=== PATIENT | female | born 1945 | race Caucasian/White ===

== ENCOUNTER 2016-10-08 16:44 | Emergency (ER) | payer MEDICARE ==
[~2016-10-08] VITALS: Ht 167.6 cm; Wt 69.4 kg
[~2016-10-08 16:44] MED LIST: PNT40TEC PO
--- NOTE | 2016-10-08 17:22 | ED General ---
General Stated Complaint: ELEV BP Source of Information: Patient History of Present Illness Time Seen by Provider: 16:59 Initial Comments PT ARRIVES VIA POV FROM HOME PT STATES BP HAS BEEN HIGH TODAY PT WAS STARTED ON BP MEDICATION FOR THE FIRST TIME ON 09/20/16--LISINOPRIL + BYSTOLIC--IS NOT TAKING THEM AT THE SAME TIME EVERY DAY, AND HAS BEEN CUTTING BYSTOLIC IN HALF AND CRUSHING IT AND MIXING IN APPLESAUCE SINCE THAT DAY, PT HAS BEEN CHECKING HER BP EVERY 5-30 MINUTES CONTINUOUSLY-- EVERY DAY, ALL DAY AND ALL NIGHT, LITERALLY. STATES BP "GOES UP AND DOWN" --PT BRINGS IN MULTIPLE NOTEBOOK PAGES FILLED ON FRONT AND BACK WITH BP READINGS SINCE 09/20/16--OBVIOUSLY PT IS NOT SLEEPING, SHE IS CONSTANTLY CHECKING HER BLOOD PRESSURE AROUND THE CLOCK. 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 SOLANO PT WAS ALSO TREATED FOR SINUSITIS ON 09/20/16 WITH AUGMENTIN--THOSE SYMPTOMS ARE BETTER Allergies and Home Medications Allergies Coded Allergies: No Known Drug Allergies (Unverified , 08/06/13) Home Medications Pantoprazole Sod 40 Mg Tab, 40 MG PO DAILY, #30 Prescribed by: CARROL AMEZQUITA on 11/30/13 1101 Constitutional: no symptoms reported EENTM: no symptoms reported Respiratory: no symptoms reported Cardiovascular: see HPI, No chest pain, No edema, No Hx of Intervention, No palpitations, No syncope, No vascular heart diseas Gastrointestinal: see HPI, No abdominal pain, nausea, No vomiting Genitourinary: no symptoms reported Musculoskeletal: no symptoms reported Skin: no symptoms reported Psychiatric/Neurological: See HPI, Anxiety, Denies Headache, Denies Numbness, Denies Paresthesia, Denies Seizure, Denies Weakness Hematologic/Lymphatic: No Symptoms Reported Immunological/Allergic: no symptoms reported Past Oclunxb-Wlzrtl-Swnwhb Hx Patient Social History Alcohol Use: Denies Use Recreational Drug Use: No Smoking Status: Never a Smoker Recent Foreign Travel: No Contact w/Someone Who Travel: No Immunizations Up To Date Tetanus Booster (TDap): Less than 5yrs Surgeries HX Surgeries: Yes (RHINOPLASTY; BENIGN CYST REMOVED FROM BREAST) Surgeries: Breast Respiratory Hx Respiratory Disorders: Yes Respiratory Disorders: Asthma Cardiovascular Hx Cardiac Disorders: Yes (STARTED ON BP MEDICATIONS 09/20/16) Cardiac Disorders: Hypertension Neurological Hx Neurological Disorders: No Reproductive System Hx Reproductive Disorders: No Genitourinary Hx Genitourinary Disorders: No Gastrointestinal Hx Gastrointestinal Disorders: Yes Gastrointestinal Disorders: Gastroesophageal Reflux Musculoskeletal Hx Musculoskeletal Disorders: Yes Musculoskeletal Disorders: Arthritis Endocrine Hx Endocrine Disorders: No HEENT HX ENT Disorders: No Loss of Vision: Denies Cancer Hx Cancer: No Psychosocial Hx Psychiatric Problems: No Integumentary HX Skin/Integumentary Disorder: No Blood Transfusions Hx Blood Disorders: No Family Medical History Family Medial History: Completed stroke 19 FATHER Congenital heart disease G8 BROTHER Diabetes mellitus G8 BROTHER FH: breast cancer 19 MOTHER Hypertension G8 BROTHER G8 SISTER Myocardial infarction 19 FATHER Physical Exam Vital Signs Vital Sign - Last 12Hours 10/08/16 17:10 Temp 98.0 Pulse 74 Resp 18 B/P (MAP) 184/104 Pulse Ox 97 Capillary Refill : General Appearance: No Apparent Distress, WD/WN, Anxious HEENT: PERRL/EOMI (GLASSES) Neck: Full Range of Motion, Normal Inspection, Non Tender, Supple Respiratory: Normal Breath Sounds, No Accessory Muscle Use, No Respiratory Distress Cardiovascular: Regular Rate, Rhythm, No Edema, No JVD, No Murmur, Normal Peripheral Pulses Gastrointestinal: Normal Bowel Sounds, No Organomegaly, No Pulsatile Mass, Non Tender, Soft Back: Normal Inspection Extremity: Normal Inspection, No Calf Tenderness, No Pedal Edema Neurologic/Psychiatric: Alert, Oriented x3, No Motor/Sensory Deficits, 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, Other (EXTREMELY ANXIOUS) Skin: Normal Color, Warm/Dry Progress/Results/Core Measures Results/Orders Lab Results Laboratory Tests Test 10/08/16 17:15 Range/Units White Blood Count 7.1 4.3-11.0 10^3/uL Red Blood Count 4.48 4.35-5.85 10^6/uL Hemoglobin 14.3 11.5-16.0 G/DL Hematocrit 44 35-52 % Mean Corpuscular Volume 97 80-99 FL Mean Corpuscular Hemoglobin 32 25-34 PG Mean Corpuscular Hemoglobin Concent 33 32-36 G/DL Red Cell Distribution Width 13.3 10.0-14.5 % Platelet Count 215 130-400 10^3/uL Mean Platelet Volume 11.0 H 7.4-10.4 FL Neutrophils (%) (Auto) 67 42-75 % Lymphocytes (%) (Auto) 22 12-44 % Monocytes (%) (Auto) 10 0-12 % Eosinophils (%) (Auto) 1 0-10 % Basophils (%) (Auto) 1 0-10 % Neutrophils # (Auto) 4.8 1.8-7.8 X 10^3 Lymphocytes # (Auto) 1.6 1.0-4.0 X 10^3 Monocytes # (Auto) 0.7 0.0-1.0 X 10^3 Eosinophils # (Auto) 0.0 0.0-0.3 10^3/uL Basophils # (Auto) 0.0 0.0-0.1 10^3/uL Prothrombin Time 12.5 12.2-14.7 SEC INR Comment 0.9 0.8-1.4 Activated Partial Thromboplast Time 27 24-35 SEC Sodium Level 143 135-145 MMOL/L Potassium Level 3.3 L 3.6-5.0 MMOL/L Chloride Level 105 98-107 MMOL/L Carbon Dioxide Level 24 21-32 MMOL/L Anion Gap 14 5-14 MMOL/L Blood Urea Nitrogen 13 7-18 MG/DL Creatinine 0.77 0.60-1.30 MG/DL Estimat Glomerular Filtration Rate > 60 BUN/Creatinine Ratio 17 Glucose Level 109 H 70-105 MG/DL Calcium Level 9.7 8.5-10.1 MG/DL Magnesium Level 2.1 1.8-2.4 MG/DL Total Bilirubin 0.5 0.1-1.0 MG/DL Aspartate Amino Transf (AST/SGOT) 19 5-34 U/L Alanine Aminotransferase (ALT/SGPT) 13 0-55 U/L Alkaline Phosphatase 44 40-136 U/L Troponin I < 0.30 <0.30 NG/ML Total Protein 7.3 6.4-8.2 GM/DL Albumin 4.2 3.2-4.5 GM/DL TSH [place] Testing 0.43 0.35-4.94 UIU/ML My Orders Orders - YOGESH HERRERA DO Saline Lock/Iv-Start (10/08/16 17:08) Ekg Tracing (10/08/16 17:08) Monitor-Rhythm Ecg Trace Only (10/08/16 17:08) Cbc With Automated Diff (10/08/16 17:08) Comprehensive Metabolic Panel (10/08/16 17:08) Magnesium (10/08/16 17:08) Protime With Inr (10/08/16 17:08) Partial Thromboplastin Time (10/08/16 17:08) Thyroid Analyzer (10/08/16 17:08) Troponin I (10/08/16 17:08) Chest 1 View, Ap/Pa Only (10/08/16 17:08) Potassium Chloride (Tablet) (Klor Con Ta (10/08/16 18:15) Medications Given in ED Current Medications Medications Dose Ordered Sig/Gurpreet Route Start Time Stop Time Status Last Admin Dose Admin Potassium Chloride 20 meq ONCE ONCE PO 10/08/16 18:15 10/08/16 18:16 DC 10/08/16 18:16 20 MEQ Vital Signs/I&O Vital Sign - Last 12Hours 10/08/16 10/08/16 17:10 18:22 Temp 98.0 Pulse 74 64 Resp 18 18 B/P (MAP) 184/104 Pulse Ox 97 97 Progress Note : Progress Note BP COMING DOWN WITHOUT TREATMENT PT APPEARS CALMER AT DISMISSAL REASSURANCE GIVEN TO PT ECG Initial ECG Impression Time: 17:10 Initial ECG Rate: 67 Initial ECG Rhythm: Normal Sinus Initial ECG Comparisson: No Previous ECG Available Diagnostic Imaging Comments CXR--NO ACUTE PROCESS, PER RADIOLOGIST REPORT @ 1800 Reviewed: Reviewed by Me Departure Impression Impression: Primary Impression: Labile blood pressure Additional Impressions: Anxiety disorder due to general medical condition MILD HYPOKALEMIA Disposition: 01 HOME, SELF-CARE Condition: Improved Departure-Patient Inst. Referrals: KISHA SOLANO MD (PCP) Primary Care Physician Patient Instructions: DASH Diet, Heart Healthy Diet, High Blood Pressure (DC) Add. Discharge Instructions: CONTINUE YOUR MEDICATIONS PRESCRIBED, AND TAKE THEM AT THE SAME TIME EVERY DAY STOP CHECKING YOUR BLOOD PRESSURE FOLLOW UP WITH DR. SOLANO THIS WEEK FOR FURTHER CARE YOGESH HERRERA DO Oct 08, 2016 17:22
[2016-10-08 17:24] LABS: BASOPHILS % (AUTO) 1 % (0-10); EOSINOPHILS % (AUTO) 1 % (0-10); LYMPHOCYTES # (AUTO) 1.6 X 10^3 (1.0-4.0); LYMPHOCYTES % (AUTO) 22 % (12-44); MEAN CORPUSCULAR HEMOGLOBIN 32 PG (25-34); MEAN CORPUSCULAR HGB CONC 33 G/DL (32-36); MEAN CORPUSCULAR VOLUME 97 FL (80-99); MONOCYTES # (AUTO) 0.7 X 10^3 (0.0-1.0); MONOCYTES % (AUTO) 10 % (0-12); NEUTROPHILS # (AUTO) 4.8 X 10^3 (1.8-7.8); NEUTROPHILS % (AUTO) 67 % (42-75); PLATELET COUNT 215 10^3/uL (130-400); RED BLOOD COUNT 4.48 10^6/uL (4.35-5.85); RED CELL DISTRIBUTION WIDTH 13.3 % (10.0-14.5); WHITE BLOOD COUNT 7.1 10^3/uL (4.3-11.0)
[2016-10-08 17:34] LABS: INR 0.9 (0.8-1.4); PROTHROMBIN TIME PATIENT 12.5 SEC (12.2-14.7)
--- NOTE | 2016-10-08 17:42 | Diagnostic Imaging Report ---
INDICATION: Hypertension. EXAMINATION: Portable chest at 5:32 p.m. FINDINGS: Heart size and pulmonary vascularity are normal. Lungs are clear. There are no effusions or pneumothoraces. IMPRESSION: Negative chest. Dictated by: Dictated on workstation # [id number]
[2016-10-08 17:44] LABS: ALANINE AMINOTRANSFERASE 13 U/L (0-55); ALBUMIN 4.2 GM/DL (3.2-4.5); ANION GAP 14 MMOL/L (5-14); ASPARTATE AMINO TRANSFERASE 19 U/L (5-34); BILIRUBIN,TOTAL 0.5 MG/DL (0.1-1.0); BLOOD UREA NITROGEN 13 MG/DL (7-18); BUN/CREATININE RATIO 17; CALCIUM 9.7 MG/DL (8.5-10.1); CARBON DIOXIDE 24 MMOL/L (21-32); CHLORIDE 105 MMOL/L (98-107); CREATININE SERUM 0.77 MG/DL (0.60-1.30); GFR ESTIMATED > 60; GLUCOSE 109 MG/DL (70-105); MAGNESIUM 2.1 MG/DL (1.8-2.4); POTASSIUM 3.3 MMOL/L (3.6-5.0); SODIUM 143 MMOL/L (135-145); TOTAL PROTEIN 7.3 GM/DL (6.4-8.2)
[2016-10-08 18:04] LABS: TROPONIN I < 0.30 NG/ML (<0.30)
[2016-10-08] MEDS ORDERED: KCL 10 MEQ TAB (MICRO K) PO ONE (18:15)
[2016-10-08 18:22] VITALS: BP 170/90
== END 2016-10-08 18:22 | disposition home or self-care (01) ==
LOC: EDUNIT# 16:44 → ER 16:45
DX: I10 Essential (primary) hypertension (principal); F41.9 Anxiety disorder, unspecified; E87.6 Hypokalemia; J45.909 Unspecified asthma, uncomplicated; K21.9 Gastro-esophageal reflux disease without esophagitis; M19.90 Unspecified osteoarthritis, unspecified site; Z80.3 Family history of malignant neoplasm of breast; Z82.49 Family history of ischemic heart disease and other diseases of the circulatory system
CPT/HCPCS: 36415; 71010; 80053; 83735; 84443; 84484; 85025; 85610; 85730; 93005; 93041

== ENCOUNTER 2016-10-15 10:58 | Emergency (ER) | payer MEDICARE ==
[~2016-10-15] VITALS: Ht 167.6 cm; Wt 69.6 kg
[2016-10-15 11:27] VITALS: BP 185/107
--- NOTE | 2016-10-15 13:23 | ED GI ---
General Chief Complaint: Abdominal/GI Problems Stated Complaint: NAUSEA/VOMITING/L EAR DISCOMFORT Nursing Triage Note: PT REPORTS SHE HAS HAD N/V FOR THE LAST COUPLE OF DAYS. SHE STATES SHE HAS HAD RECENT CHANGES TO HER BLOOD PRESSURE MEDICATIONS AND SHE IS UNSURE IF THAT IS THE CAUSE. SHE ALSO REPORTS L EAR PAIN. Sepsis Screen: No Definite Risk Source of Information: Patient Exam Limitations: No Limitations History of Present Illness Time Seen By Provider: 13:15 Initial Comments The patient is a 71-year-old white female who presents today with complaints of nausea and vomiting. This has been a problem for 36-48 hours. She is continued to try to eat during this period of time. There has been no bowel movement for 3 days. There is been no fever. She was here one week ago with concerns over her new antihypertensive medications. Timing/Duration: 1-2 Days Severity/Quality: Moderate Allergies and Home Medications Allergies Coded Allergies: No Known Drug Allergies (Unverified , 08/06/13) Home Medications Pantoprazole Sod 40 Mg Tab, 40 MG PO DAILY, #30 Prescribed by: CARROL AMEZQUITA on 11/30/13 1101 Review of Systems Constitutional: see HPI EENTM: Ear Pain (left) Respiratory: No Symptoms Reported Cardiovascular: No Symptoms Reported Gastrointestinal: See HPI, Constipated, Nausea, Vomiting Genitourinary: No Symptoms Reported Musculoskeletal: no symptoms reported Skin: no symptoms reported Psychiatric/Neurological: No Symptoms Reported Endocrine: No Symptoms Reported Hematologic/Lymphatic: No Symptoms Reported Past Ryhonts-Upfiiv-Hxkphc Hx Patient Social History Alcohol Use: Denies Use Recreational Drug Use: No Smoking Status: Never a Smoker 2nd Hand Smoke Exposure: No Recent Foreign Travel: No Contact w/Someone Who Travel: No Recent Infectious Disease Expo: No Recent Hopitalizations: No Physical Abuse: No Sexual Abuse: No Immunizations Up To Date Tetanus Booster (TDap): Less than 5yrs Surgeries History of Surgeries: Yes (RHINOPLASTY) Surgeries: Breast Respiratory History of Respiratory Disorde: Yes Respiratory Disorders: Asthma Cardiovascular History of Cardiac Disorders: Yes Cardiac Disorders: Hypertension Neurological History of Neurological Disord: No Reproductive System Hx Reproductive Disorders: No Gastrointestinal History of Gastrointestinal Di: Yes Gastrointestinal Disorders: Gastroesophageal Reflux Musculoskeletal History of Musculoskeletal Dis: No Musculoskeletal Disorders: Arthritis Endocrine History of Endocrine Disorders: No HEENT Loss of Vision: Denies Cancer History of Cancer: No (benign cyst L breast removed ) Psychosocial History of Psychiatric Problem: No Suicide Risk Score: 0 Integumentary History of Skin or Integumenta: No Blood Transfusions History of Blood Disorders: No Family Medical History Family Medial History: Completed stroke 19 FATHER Congenital heart disease G8 BROTHER Diabetes mellitus G8 BROTHER FH: breast cancer 19 MOTHER Hypertension G8 BROTHER G8 SISTER Myocardial infarction 19 FATHER Physical Exam Vital Signs VS - Last 72 Hours, by Label 10/15/16 11:27 Temp 97.2 Pulse 84 Resp 16 B/P (MAP) 185/107 Pulse Ox 98 O2 Delivery Room Air Capillary Refill : Less Than 3 Seconds General Appearance: other (aNXIOUS) HEENT: other (left ear and TM unremarkable) Neck: full range of motion Respiratory: chest non-tender, lungs clear, normal breath sounds, no respiratory distress, no accessory muscle use Cardiovascular: normal peripheral pulses, regular rate, rhythm, no edema, no gallop, no JVD, no murmur Gastrointestinal: non tender, soft, no organomegaly, abnormal bowel sounds ( Somewhat decreased) Extremities: normal range of motion, non-tender, normal inspection, no pedal edema, no calf tenderness, normal capillary refill, pelvis stable Back: normal inspection 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, no motor/sensory deficits, alert, normal mood/affect, oriented x 3 Skin: normal color, warm/dry Lymphatic: no adenopathy Progress/Results/Core Measures Results/Orders Lab Results Laboratory Tests Test 10/15/16 13:35 Range/Units White Blood Count 5.5 4.3-11.0 10^3/uL Red Blood Count 4.96 4.35-5.85 10^6/uL Hemoglobin 15.7 11.5-16.0 G/DL Hematocrit 48 35-52 % Mean Corpuscular Volume 96 80-99 FL Mean Corpuscular Hemoglobin 32 25-34 PG Mean Corpuscular Hemoglobin Concent 33 32-36 G/DL Red Cell Distribution Width 13.6 10.0-14.5 % Platelet Count 194 130-400 10^3/uL Mean Platelet Volume 11.3 H 7.4-10.4 FL Neutrophils (%) (Auto) 66 42-75 % Lymphocytes (%) (Auto) 23 12-44 % Monocytes (%) (Auto) 10 0-12 % Eosinophils (%) (Auto) 0 0-10 % Basophils (%) (Auto) 1 0-10 % Neutrophils # (Auto) 3.6 1.8-7.8 X 10^3 Lymphocytes # (Auto) 1.2 1.0-4.0 X 10^3 Monocytes # (Auto) 0.6 0.0-1.0 X 10^3 Eosinophils # (Auto) 0.0 0.0-0.3 10^3/uL Basophils # (Auto) 0.0 0.0-0.1 10^3/uL Sodium Level 145 135-145 MMOL/L Potassium Level 3.4 L 3.6-5.0 MMOL/L Chloride Level 103 98-107 MMOL/L Carbon Dioxide Level 27 21-32 MMOL/L Anion Gap 15 H 5-14 MMOL/L Blood Urea Nitrogen 10 7-18 MG/DL Creatinine 0.75 0.60-1.30 MG/DL Estimat Glomerular Filtration Rate > 60 BUN/Creatinine Ratio 13 Glucose Level 103 70-105 MG/DL Calcium Level 10.1 8.5-10.1 MG/DL Total Bilirubin 0.7 0.1-1.0 MG/DL Aspartate Amino Transf (AST/SGOT) 20 5-34 U/L Alanine Aminotransferase (ALT/SGPT) 13 0-55 U/L Alkaline Phosphatase 57 40-136 U/L Total Protein 8.0 6.4-8.2 GM/DL Albumin 4.6 H 3.2-4.5 GM/DL My Orders Orders - SARAH MILLS MD Cbc With Automated Diff (10/15/16 13:13) Comprehensive Metabolic Panel (10/15/16 13:13) Vital Signs/I&O Vital Sign - Last 12Hours 10/15/16 11:27 Temp 97.2 Pulse 84 Resp 16 B/P (MAP) 185/107 Pulse Ox 98 O2 Delivery Room Air Blood Pressure Mean: 133 Departure Communication Progress Notes 1419 CBC and chemistry are basically normal Impression Impression: Primary Impression: gastroenteritis Disposition: 01 HOME, SELF-CARE Condition: Stable/Unchanged Departure-Patient Inst. Decision time for Depature: 14:17 Referrals: KISHA SOLANO MD (PCP/Family) Primary Care Physician Patient Instructions: No Instuctions Given Add. Discharge Instructions: All discharge instructions reviewed with patient and/or family. Voiced understanding. Take a clear liquid diet until no vomiting for 24 hours. Use Zofran as needed to control vomiting. After no vomiting for 24 hours began eating again starting with broth and advancing to mashed potatoes or steamed rice with broth and dry toast. At that point you likely be able to resume a bland diet. Scripts Ondansetron (Zofran Odt) 8 Mg Tab.rapdis 8 MG PO 4 times a day, #10 TAB Prov: SARAH MILLS MD 10/15/16 SARAH MILLS MD Oct 15, 2016 13:23
[2016-10-15 13:48] LABS: BASOPHILS % (AUTO) 1 % (0-10); EOSINOPHILS % (AUTO) 0 % (0-10); LYMPHOCYTES # (AUTO) 1.2 X 10^3 (1.0-4.0); LYMPHOCYTES % (AUTO) 23 % (12-44); MEAN CORPUSCULAR HEMOGLOBIN 32 PG (25-34); MEAN CORPUSCULAR HGB CONC 33 G/DL (32-36); MEAN CORPUSCULAR VOLUME 96 FL (80-99); MEAN PLATELET VOLUME 11.3 FL (7.4-10.4); MONOCYTES # (AUTO) 0.6 X 10^3 (0.0-1.0); MONOCYTES % (AUTO) 10 % (0-12); NEUTROPHILS # (AUTO) 3.6 X 10^3 (1.8-7.8); NEUTROPHILS % (AUTO) 66 % (42-75); PLATELET COUNT 194 10^3/uL (130-400); RED BLOOD COUNT 4.96 10^6/uL (4.35-5.85); RED CELL DISTRIBUTION WIDTH 13.6 % (10.0-14.5); WHITE BLOOD COUNT 5.5 10^3/uL (4.3-11.0)
[2016-10-15 14:05] LABS: ALANINE AMINOTRANSFERASE 13 U/L (0-55); ALBUMIN 4.6 GM/DL (3.2-4.5); ANION GAP 15 MMOL/L (5-14); ASPARTATE AMINO TRANSFERASE 20 U/L (5-34); BILIRUBIN,TOTAL 0.7 MG/DL (0.1-1.0); BLOOD UREA NITROGEN 10 MG/DL (7-18); BUN/CREATININE RATIO 13; CALCIUM 10.1 MG/DL (8.5-10.1); CARBON DIOXIDE 27 MMOL/L (21-32); CHLORIDE 103 MMOL/L (98-107); CREATININE SERUM 0.75 MG/DL (0.60-1.30); GFR ESTIMATED > 60; GLUCOSE 103 MG/DL (70-105); POTASSIUM 3.4 MMOL/L (3.6-5.0); SODIUM 145 MMOL/L (135-145)
[2016-10-15] MEDS ORDERED: ONDA8TAB9 PO (14:20)
[2016-10-15] MEDS ORDERED: ONDANSETRON 8 MG (ZOFRAN) ORAL DISSOLVE TAB PO ONE (14:30)
== END 2016-10-15 14:41 | disposition home or self-care (01) ==
LOC: EDUNIT# 10:58 → ER 10:59
DX: K52.9 Noninfective gastroenteritis and colitis, unspecified (principal); J45.909 Unspecified asthma, uncomplicated; I10 Essential (primary) hypertension; K21.9 Gastro-esophageal reflux disease without esophagitis; M19.90 Unspecified osteoarthritis, unspecified site; Z82.49 Family history of ischemic heart disease and other diseases of the circulatory system; Z80.3 Family history of malignant neoplasm of breast
CPT/HCPCS: 36415; 80053; 85025; 99282

== ENCOUNTER 2016-10-18 09:07 | Emergency (ER) | payer MEDICARE ==
[~2016-10-18] VITALS: Ht 167.6 cm; Wt 69.6 kg
[~2016-10-18 09:07] MED LIST changes: +ONDA8TAB9 PO
[2016-10-18] MEDS ORDERED: PROM25SU43 RC (10:43)
--- NOTE | 2016-10-18 10:43 | ED GI ---
General Chief Complaint: General Problems/Pain Stated Complaint: DRY HEEVES/DRY MOUTH/CANT KEEP ANYTHING DOWN Nursing Triage Note: PT WAS SEEN AND TX IN THIS ED FOR GASTROENTERITIS ON 10/15/16. SHE REPORTS FOLLOWING UP WITH HER PCP YESTERDAY. SHE STATES HE PUT HER ON AMLODYPINE FOR HER BP. SHE ALSO STATES THAT HE WAS TO REFERR HER TO PT FOR TIGHTNESS IN HER TRAPEZIUS MUSCLE WHICH HE BELIEVES IS CAUSING HER DIFFICULTY SWALLOWING. SHE C/ O NOT BEING ABLE "TO KEEP ANYTHING DOWN" AND DRY HEAVES. PT WAS PRESCRIBED ZOFRAN IN THIS ED ON PREVIOUS VISIT. Sepsis Screen: No Definite Risk Source of Information: Patient, Family Exam Limitations: No Limitations (GERA BOBBY) History of Present Illness Time Seen By Provider: 10:31 Initial Comments Patient presents to ER by private conveyance with her sister and neighbor with a chief complaint of being diagnosed with gastroenteritis on Sunday in the ER and given Zofran. She saw her doctor in follow-up yesterday for some chronic issues with her left neck pain and blood pressure management and he agreed with the assessment and did not make any changes to her nausea medicine or management of her gastritis. Today she still having some dry heaving and nausea and she says her mouth is so dry that when she takes the Zofran it does not absorb so she does not feel it is working as well. She says that you time she's taken it and it absorb in her mouth it did work for a few hours. She is not having any diarrhea, rash, fevers, chills, dysuria, shortness of breath, cough, rash. (GERA BOBBY) Allergies and Home Medications Allergies Coded Allergies: No Known Drug Allergies (Unverified , 08/06/13) Home Medications Ondansetron 8 Mg Tab.rapdis, 8 MG PO 4 times a day, #10 Prescribed by: SARAH MILLS on 10/15/16 1420 Pantoprazole Sod 40 Mg Tab, 40 MG PO DAILY, #30 Prescribed by: CARROL AMEZQUITA on 11/30/13 1101 Promethazine HCl 25 Mg Supp.rect, 25 MG RC Q6H PRN for NAUSEA/VOMITING-1ST LINE , #14 Ref 0 Prescribed by: GERA BOBBY on 10/18/16 1043 Review of Systems Constitutional: No chills, No diaphoresis, No fever, malaise EENTM: No Ear Pain, No Mouth Pain, No Mouth Swelling, No Throat Pain Respiratory: Denies Cough, Denies Shortness of Air Cardiovascular: Denies Chest Pain, Denies Lightheadedness, Denies Syncope Gastrointestinal: Denies Constipated, Denies Diarrhea, Nausea, Vomiting Genitourinary: Denies Burning, Denies Discharge Musculoskeletal: No back pain, No joint pain Skin: No pruritus, No rash Psychiatric/Neurological: Denies Headache, Denies Numbness, Denies Paresthesia (GERA BOBBY) Past Bjptgvu-Qptmxr-Fetbhb Hx Patient Social History Alcohol Use: Denies Use Recreational Drug Use: No Smoking Status: Never a Smoker 2nd Hand Smoke Exposure: No Recent Foreign Travel: No Contact w/Someone Who Travel: No Recent Infectious Disease Expo: No Recent Hopitalizations: No Physical Abuse: No Sexual Abuse: No (GERA BOBBY) Immunizations Up To Date Tetanus Booster (TDap): Less than 5yrs (GERA BOBBY) Seasonal Allergies Seasonal Allergies: No (GERA BOBBY) Surgeries History of Surgeries: Yes (RHINOPLASTY) Surgeries: Breast (GERA BOBBY) Respiratory History of Respiratory Disorde: Yes Respiratory Disorders: Asthma (GERA BOBBY) Cardiovascular History of Cardiac Disorders: Yes Cardiac Disorders: Hypertension (GERA BOBBY) Neurological History of Neurological Disord: No (GERA BOBBY) Reproductive System Hx Reproductive Disorders: No (GERA BOBBY) Gastrointestinal History of Gastrointestinal Di: Yes Gastrointestinal Disorders: Gastroesophageal Reflux (GERA BOBBY) Musculoskeletal History of Musculoskeletal Dis: No Musculoskeletal Disorders: Arthritis (GERA BOBBY) Endocrine History of Endocrine Disorders: No (GERA BOBBY) HEENT Loss of Vision: Denies (GERA BOBBY) Cancer History of Cancer: No (benign cyst L breast removed ) (GERA BOBBY) Psychosocial History of Psychiatric Problem: No Suicide Risk Score: 0 (GERA BOBBY) Integumentary History of Skin or Integumenta: No (GERA BOBBY) Blood Transfusions History of Blood Disorders: No (GERA BOBBY) Family Medical History Family Medial History: Completed stroke 19 FATHER Congenital heart disease G8 BROTHER Diabetes mellitus G8 BROTHER FH: breast cancer 19 MOTHER Hypertension G8 BROTHER G8 SISTER Myocardial infarction 19 FATHER (GERA BOBBY) Family Medial History: Completed stroke 19 FATHER Congenital heart disease G8 BROTHER Diabetes mellitus G8 BROTHER FH: breast cancer 19 MOTHER Hypertension G8 BROTHER G8 SISTER Myocardial infarction 19 FATHER (NANCY ROCHA APRN) Physical Exam Vital Signs VS - Last 72 Hours, by Label 10/18/16 10:01 Temp 97.3 Pulse 85 Resp 20 B/P (MAP) 179/100 Pulse Ox 97 O2 Delivery Room Air (NANCY ROCHA APRN) Vital Signs Capillary Refill : Less Than 3 Seconds (GERA BOBBY) General Appearance: WD/WN, no apparent distress HEENT: PERRL/EOMI, pharynx normal Neck: non-tender, supple, normal inspection Respiratory: chest non-tender, lungs clear, normal breath sounds Cardiovascular: normal peripheral pulses, regular rate, rhythm, no edema Peripheral Pulses: 2+ Radial Pulses (R), 2+ Radial Pulses (L) Gastrointestinal: normal bowel sounds, non tender, soft Extremities: non-tender, normal inspection, normal capillary refill Neurologic/Psychiatric: alert, normal mood/affect, oriented x 3 Skin: normal color, warm/dry (GERA BOBBY) Progress/Results/Core Measures Results/Orders My Orders Orders - NANCY ROCHA APRN Ondansetron Injection (Zofran Injectio (10/18/16 11:30) Normal Saline Bolus 1,000ml (10/18/16 11:30) Cbc With Automated Diff (10/18/16 11:21) Basic Metabolic Panel (10/18/16 11:21) Saline Lock/Iv-Start (10/18/16 11:21) (NANCY ROCHA APRN) Vital Signs/I&O Vital Sign - Last 12Hours 10/18/16 10:01 Temp 97.3 Pulse 85 Resp 20 B/P (MAP) 179/100 Pulse Ox 97 O2 Delivery Room Air (NANCY ROCHA APRN) Blood Pressure Mean: 126 Progress Note : Time: 16:19 Progress Note Patient with clinical gastroenteritis probably from viral origin. She has relief with her ondansetron but is afraid to take it because she is afraid to mix with water and will cause problems. Encourage her to take her ondansetron and if she is unable to tolerate that and another option would be Phenergan suppositories which she was very willing to try. (GERA BOBBY) Departure Communication (Admissions) Progress Notes 1123- see history of present illness from Dr. Bobby. Patient states that she has Zofran at home but is scared to take it with water because it increases serotonin levels in her mouth is to drive to dissolve it otherwise. She states that it does work however. She reports intermittent nausea, none currently. Denies abdominal pain. Denies fevers or chills. States that the diarrhea has subsided. She has a lengthy history of what pressure regimen changes as she believes this to be the cause of her GI upset. Anyway, she is able to tolerate oral fluids at this time but is insistent that she receive a bag of IV fluids for her recent gastrointestinal symptoms. (NANCY ROCHA APRN) Impression Impression: Primary Impression: Nausea and vomiting Qualified Codes: R11.2 - Nausea with vomiting, unspecified Disposition: HOME, SELF-CARE Condition: Stable Departure-Patient Inst. Decision time for Depature: 10:41 (GERA BOBBY) Referrals: KISHA SOLANO MD (PCP/Family) Primary Care Physician Patient Instructions: [id number] Add. Discharge Instructions: Try using the Zofran under the tongue if you're having nausea. If this does not work then you can use the Phenergan suppository every 6 hours as needed. If your symptoms persist more than one week you should follow up with your primary care physician for further management. If you started having new symptoms such as high fevers, lethargy then you may represent to the ER or your primary doctor. All discharge instructions reviewed with patient and/or family. Voiced understanding. Scripts Promethazine HCl (Phenergan) 25 Mg Supp.rect 25 MG RC Q6H Y for NAUSEA/VOMITING-1ST LINE, #14 SUPP.RECT 0 Refills Prov: GERA BOBBY 10/18/16 Copy Copies To 1: KISHA SOLANO MD, TITUS J Oct 18, 2016 10:43 NANCY ROCHA APRN Oct 18, 2016 11:24
[2016-10-18] MEDS ORDERED: ONDANSETRON 4 MG/2 ML (SDV) Z0FRAN IM ONE (10:45)
[2016-10-18 11:27] LABS: BASOPHILS % (AUTO) 1 % (0-10); EOSINOPHILS % (AUTO) 0 % (0-10); LYMPHOCYTES # (AUTO) 1.3 X 10^3 (1.0-4.0); LYMPHOCYTES % (AUTO) 18 % (12-44); MEAN CORPUSCULAR HEMOGLOBIN 32 PG (25-34); MEAN CORPUSCULAR HGB CONC 33 G/DL (32-36); MEAN CORPUSCULAR VOLUME 98 FL (80-99); MEAN PLATELET VOLUME 11.2 FL (7.4-10.4); MONOCYTES # (AUTO) 0.6 X 10^3 (0.0-1.0); MONOCYTES % (AUTO) 8 % (0-12); NEUTROPHILS # (AUTO) 5.4 X 10^3 (1.8-7.8); NEUTROPHILS % (AUTO) 73 % (42-75); PLATELET COUNT 199 10^3/uL (130-400); RED BLOOD COUNT 4.81 10^6/uL (4.35-5.85); RED CELL DISTRIBUTION WIDTH 13.8 % (10.0-14.5); WHITE BLOOD COUNT 7.4 10^3/uL (4.3-11.0)
[2016-10-18] MEDS ORDERED: NS IV 1000 ML 1,000 ML IV SCH (11:30)
[2016-10-18] MEDS ORDERED: ONDANSETRON 4 MG/2 ML (SDV) Z0FRAN IVP ONE (11:30)
[2016-10-18 11:53] LABS: ANION GAP 22 MMOL/L (5-14); BLOOD UREA NITROGEN 27 MG/DL (7-18); BUN/CREATININE RATIO 32; CALCIUM 10.2 MG/DL (8.5-10.1); CARBON DIOXIDE 20 MMOL/L (21-32); CHLORIDE 104 MMOL/L (98-107); CREATININE SERUM 0.85 MG/DL (0.60-1.30); GFR ESTIMATED > 60; GLUCOSE 85 MG/DL (70-105); POTASSIUM 3.6 MMOL/L (3.6-5.0); SODIUM 146 MMOL/L (135-145)
[2016-10-18 12:15] VITALS: BP 179/100
== END 2016-10-18 12:15 | disposition home or self-care (01) ==
LOC: EDUNIT# 09:07 → ER 09:11
DX: R11.2 Nausea with vomiting, unspecified (principal); J45.909 Unspecified asthma, uncomplicated; K21.9 Gastro-esophageal reflux disease without esophagitis; M19.90 Unspecified osteoarthritis, unspecified site; I10 Essential (primary) hypertension; Z82.49 Family history of ischemic heart disease and other diseases of the circulatory system; Z80.3 Family history of malignant neoplasm of breast; Z87.19 Personal history of other diseases of the digestive system
CPT/HCPCS: 36415; 80048; 85025; 96361; 96374

== ENCOUNTER 2016-10-20 10:56 | Outpatient (CLI) | payer MEDICARE ==
[~2016-10-20] VITALS: Ht 167.6 cm; Wt 64.4 kg
[~2016-10-20 10:56] MED LIST changes: +PROM25SU43 RC
[2016-10-20] MEDS ORDERED: AMLO5TAB2 PO (13:47)
== END 2016-10-20 13:49 ==
LOC: PREOP 10:56
PROVIDERS: ATTEND Surgery
DX: Z01.818 Encounter for other preprocedural examination (principal); R13.10 Dysphagia, unspecified

== ENCOUNTER 2016-10-22 09:00 | Emergency (ER) | payer MEDICARE ==
[~2016-10-22] VITALS: Ht 167.6 cm; Wt 64.4 kg
[~2016-10-22 09:00] MED LIST changes: +AMLO5TAB2 PO
[2016-10-22 09:27] LABS: BILIRUBIN,URINE 1+ (NEGATIVE); KETONES,URINE 3+ (NEGATIVE); LEUKOCYTE ESTERASE ,URINE 3+ (NEGATIVE); NITRITE,URINE NEGATIVE (NEGATIVE); PH,URINE 6 (5-9); PROTEIN,URINE 2+ (NEGATIVE); UROBILINOGEN,URINE 1 MG/DL (NORMAL)
[2016-10-22] MEDS ORDERED: CIPR-225 PO (10:52)
--- NOTE | 2016-10-22 10:52 | ED GU-Female ---
General Chief Complaint: -Female Stated Complaint: UTI Nursing Triage Note: PT REPORTS URINE "LOOKS NASTY". SHE DENIES DYSURIA, FREQUENCY, URGENCY, OR FEVER. Nursing Sepsis Screen: No Definite Risk Source: patient Exam Limitations: no limitations History of Present Illness Time seen by provider: 10:49 Initial Comments To ER with no complaints other than her urine appears nasty. She would like admitted for 23 hour observation and IV antibiotics because of this. She denies nausea vomiting fevers or chills. She reports mild infrequent dysuria. This is her fourth visit to the emergency room in the past 2 weeks. Timing/Duration: constant Associated Symptoms: No abdominal pain, No dysuria, No fever/chills, No lower back pain, No nausea/vomiting, No urinary frequency Allergies and Home Medications Allergies Coded Allergies: No Known Drug Allergies (Unverified , 08/06/13) Home Medications Amlodipine Besylate 5 Mg Tablet, 5 MG PO DAILY, (Reported) Ondansetron 8 Mg Tab.rapdis, 8 MG PO 4 times a day, #10 Prescribed by: SARAH MILLS on 10/15/16 1420 Promethazine HCl 25 Mg Supp.rect, 25 MG RC Q6H PRN for NAUSEA/VOMITING-1ST LINE , #14 Ref 0 Prescribed by: GERA ESCALANTE on 10/18/16 1043 Constitutional: see HPI EENTM: see HPI Respiratory: no symptoms reported Cardiovascular: no symptoms reported Genitourinary: see HPI Musculoskeletal: no symptoms reported Skin: no symptoms reported Psychiatric/Neurological: No Symptoms Reported Past Kqxrdde-Ogfjvn-Ywkoro Hx Patient Social History Alcohol Use: Denies Use Recreational Drug Use: No Smoking Status: Never a Smoker 2nd Hand Smoke Exposure: No Recent Foreign Travel: No Contact w/Someone Who Travel: No Recent Infectious Disease Expo: No Recent Hopitalizations: No Physical Abuse: No Sexual Abuse: No Immunizations Up To Date Tetanus Booster (TDap): Less than 5yrs Seasonal Allergies Seasonal Allergies: No Surgeries History of Surgeries: Yes (RHINOPLASTY) Surgeries: Breast Respiratory History of Respiratory Disorde: Yes Respiratory Disorders: Asthma Cardiovascular History of Cardiac Disorders: Yes Cardiac Disorders: Hypertension Neurological History of Neurological Disord: No Reproductive System Hx Reproductive Disorders: No Gastrointestinal History of Gastrointestinal Di: Yes (dysphagia) Gastrointestinal Disorders: Gastroesophageal Reflux Musculoskeletal History of Musculoskeletal Dis: No Musculoskeletal Disorders: Arthritis Endocrine History of Endocrine Disorders: No HEENT Loss of Vision: Denies Cancer History of Cancer: No (benign cyst L breast removed ) Psychosocial History of Psychiatric Problem: No Suicide Risk Score: 0 Integumentary History of Skin or Integumenta: No Blood Transfusions History of Blood Disorders: No Family Medical History Family Medial History: Completed stroke 19 FATHER Congenital heart disease G8 BROTHER Diabetes mellitus G8 BROTHER FH: breast cancer 19 MOTHER Hypertension G8 BROTHER G8 SISTER Myocardial infarction 19 FATHER Physical Exam Vital Signs Vital Sign - Last 12Hours 10/22/16 09:05 Temp 97.1 Pulse 75 Resp 16 B/P (MAP) 176/99 Pulse Ox 98 O2 Delivery Room Air Capillary Refill : Less Than 3 Seconds General Appearance: WD/WN, no apparent distress HEENT: PERRL/EOMI, normal ENT inspection Neck: non-tender, full range of motion Cardiovascular: regular rate, rhythm, no murmur Respiratory: normal breath sounds, no respiratory distress, no accessory muscle use Gastrointestinal: normal bowel sounds, non tender, soft Neurologic/Psychiatric: alert, normal mood/affect, oriented x 3 Skin: normal color, warm/dry Progress/Results/Core Measures Results/Orders Lab Results Laboratory Tests Test 10/22/16 09:17 Range/Units Urine Color BROWN H Urine Clarity VERY CLOUDY H Urine pH 6 5-9 Urine Specific [place] 1.025 H 1.016-1.022 Urine Protein 2+ H NEGATIVE Urine Glucose (UA) 1+ H NEGATIVE Urine Ketones 3+ H NEGATIVE Urine Nitrite NEGATIVE NEGATIVE Urine Bilirubin 1+ H NEGATIVE Urine Urobilinogen 1 NORMAL MG/DL Urine Leukocyte Esterase 3+ H NEGATIVE Urine RBC (Auto) 2+ H NEGATIVE Urine RBC NONE /HPF Urine WBC 5-10 H /HPF Urine Crystals PRESENT H /LPF Urine Amorphous Sediment LARGE ADRY URATES H /LPF Urine Bacteria LARGE H /HPF Urine Casts NONE /LPF Urine Mucus NEGATIVE /LPF Urine Culture Indicated YES My Orders Orders - NANCY ROCHA APRN Ceftriaxone Injection (Rocephin Injectio (10/22/16 11:00) Lidocaine 1% Injection (Xylocaine 1% Inj (10/22/16 11:00) Vital Signs/I&O Vital Sign - Last 12Hours 10/22/16 09:05 Temp 97.1 Pulse 75 Resp 16 B/P (MAP) 176/99 Pulse Ox 98 O2 Delivery Room Air Blood Pressure Mean: 124 Departure Impression Impression: Primary Impression: Urinary tract infection Disposition: 01 HOME, SELF-CARE Condition: Stable Departure-Patient Inst. Decision time for Depature: 10:51 Referrals: KISHA SOLANO MD (PCP/Family) Primary Care Physician Patient Instructions: Urinary Tract Infection, Adult (DC) Add. Discharge Instructions: 1. Start the antibiotics tomorrow 2.All discharge instructions reviewed with patient and/or family. Voiced understanding. Scripts Ciprofloxacin HCl (Cipro) 500 Mg Tablet 500 MG PO BID, #6 TAB Prov: NANCY ROCHA APRN 10/22/16 Copy Copies To 1: KISHA SOLANO MD, PETER J APRN Oct 22, 2016 10:52
[2016-10-22] MEDS ORDERED: LIDOCAINE 1% INJ 20 ML (XYLOCAINE) VIAL INJ ONE (11:00)
[2016-10-22] MEDS ORDERED: cefTRIAXone 1 GM (ROCEPHIN) VIAL IM ONE (11:00)
[2016-10-22 11:05] VITALS: BP 176/99
== END 2016-10-22 11:05 | disposition home or self-care (01) ==
LOC: EDUNIT# 09:00 → ER 09:02
DX: N39.0 Urinary tract infection, site not specified (principal); J45.909 Unspecified asthma, uncomplicated; I10 Essential (primary) hypertension; K21.9 Gastro-esophageal reflux disease without esophagitis; M19.90 Unspecified osteoarthritis, unspecified site; Z80.3 Family history of malignant neoplasm of breast; Z82.49 Family history of ischemic heart disease and other diseases of the circulatory system
CPT/HCPCS: 81000; 87088; 96372; 99284

== ENCOUNTER 2016-10-24 23:55 | Emergency (ER) | payer MEDICARE ==
[~2016-10-24] VITALS: Ht 167.6 cm; Wt 64.4 kg
[~2016-10-24 23:55] MED LIST changes: +CIPR-225 PO
[2016-10-25] MEDS ORDERED: LACTATED RINGERS 1,000 ML IV ONE (00:07)
[2016-10-25] MEDS ORDERED: ONDANSETRON 4 MG/2 ML (SDV) Z0FRAN IVP ONE ×2 (00:15→01:15)
[2016-10-25 00:30] LABS: KETONES,URINE 4+ (NEGATIVE); LEUKOCYTE ESTERASE ,URINE 1+ (NEGATIVE); NITRITE,URINE NEGATIVE (NEGATIVE); PH,URINE 6 (5-9); PROTEIN,URINE 2+ (NEGATIVE); UROBILINOGEN,URINE 1 MG/DL (NORMAL)
[2016-10-25 00:32] LABS: BASOPHILS % (AUTO) 0 % (0-10); EOSINOPHILS # (AUTO) 0.1 10^3/uL (0.0-0.3); EOSINOPHILS % (AUTO) 1 % (0-10); LYMPHOCYTES # (AUTO) 2.1 X 10^3 (1.0-4.0); LYMPHOCYTES % (AUTO) 29 % (12-44); MEAN CORPUSCULAR HEMOGLOBIN 32 PG (25-34); MEAN CORPUSCULAR HGB CONC 34 G/DL (32-36); MEAN CORPUSCULAR VOLUME 95 FL (80-99); MEAN PLATELET VOLUME 11.5 FL (7.4-10.4); MONOCYTES # (AUTO) 0.8 X 10^3 (0.0-1.0); MONOCYTES % (AUTO) 11 % (0-12); NEUTROPHILS # (AUTO) 4.3 X 10^3 (1.8-7.8); NEUTROPHILS % (AUTO) 59 % (42-75); PLATELET COUNT 179 10^3/uL (130-400); RED BLOOD COUNT 4.73 10^6/uL (4.35-5.85); RED CELL DISTRIBUTION WIDTH 13.5 % (10.0-14.5); WHITE BLOOD COUNT 7.3 10^3/uL (4.3-11.0)
[2016-10-25 00:33] LABS: BILIRUBIN,URINE 1+ (NEGATIVE)
[2016-10-25 00:35] LABS: SQUAMOUS EPITHELIAL CELL,UR RARE /HPF; WBC,URINE RARE /HPF
[2016-10-25 00:54] LABS: ALANINE AMINOTRANSFERASE 14 U/L (0-55); ALBUMIN 4.1 GM/DL (3.2-4.5); AMYLASE 47 U/L (25-125); ANION GAP 21 MMOL/L (5-14); ASPARTATE AMINO TRANSFERASE 20 U/L (5-34); BILIRUBIN,TOTAL 0.9 MG/DL (0.1-1.0); BLOOD UREA NITROGEN 15 MG/DL (7-18); BUN/CREATININE RATIO 17; CALCIUM 9.7 MG/DL (8.5-10.1); CARBON DIOXIDE 22 MMOL/L (21-32); CHLORIDE 102 MMOL/L (98-107); GFR ESTIMATED > 60; GLUCOSE 95 MG/DL (70-105); LIPASE 25 U/L (8-78); MAGNESIUM 1.8 MG/DL (1.8-2.4); POTASSIUM 2.6 MMOL/L (3.6-5.0); SODIUM 145 MMOL/L (135-145); TOTAL PROTEIN 7.2 GM/DL (6.4-8.2)
[2016-10-25 01:00] LABS: TROPONIN I < 0.30 NG/ML (<0.30)
[2016-10-25] MEDS ORDERED: KCL 10 MEQ TAB (MICRO K) PO ONE ×2 (01:04→01:15)
[2016-10-25] MEDS ORDERED: SCOPOLAMINE 1.5 MG (TRANSDERM-SCOP) PATCH ONE (01:04)
[2016-10-25] MEDS ORDERED: D5 1/2 NS W/KCL 20 MEQ/L 1,000 ML IV ONE (01:04)
[2016-10-25] MEDS ORDERED: SCOPOLAMINE 1.5 MG (TRANSDERM-SCOP) PATCH TD ONE (01:15)
[2016-10-25] MEDS ORDERED: PANTOPRAZOLE 40 MG/10 ML (PROTONIX) VIAL IV ONE (01:15)
[2016-10-25] MEDS ORDERED: D5 1/2 NS W/KCL 20 MEQ/L 1,000 ML IV SCH (01:15)
--- NOTE | 2016-10-25 03:21 | ED GI ---
General Chief Complaint: Abdominal/GI Problems Stated Complaint: DRY HEAVES Source of Information: Patient, Old Records Exam Limitations: Other (PT IS AN EXTREMELY VAGUE, LIMITED AND VERY DIFFICULT HISTORIAN. ) History of Present Illness Time Seen By Provider: 00:05 Initial Comments PT ARRIVES VIA POV FROM HOME PT C/O NAUSEA AND DRY HEAVES SINCE YESTERDAY AM PT INITIALLY STATED SHE WAS FINE UNTIL YESTERDAY, THEN SHE STATES SHE HAS BEEN ON A LIQUID DIET FOR A WEEK BECAUSE SHE HAS HAD "AN UPSET STOMACH" THEN LATER STATES SHE WAS SUPPOSED TO HAVE HAD AN EGD YESTERDAY BY DR. LORA FOR THIS PROBLEM ( NAUSEA) OR FOR SWALLOWING PROBLEMS --VERY DIFFICULT TO DETERMINE EXACTLY WHAT SYMPTOMS PT IS ACTUALLY HAVING, AND HOW LONG THEY HAVE BEEN GOING ON--CANNOT STATE IF THIS IS A NEW PROBLEM OR AN ONGOING PROBLEM. HOWEVER, PT DID NOT SHOW UP FOR THE EGD BECAUSE OF "UPSET STOMACH" AND WENT TO SEE DR. Tory SOLANO INSTEAD OF GOING TO HAVE EGD DONE. LATER PT STATES FOOD FEELS LIKE IT WON'T GO DOWN--FEELS LIKE SOMETHING IS GETTING STUCK IN HER MID CHEST AREA STATES SHE CAN SWALLOW LIQUIDS OK LATER STATES SHE IS SUPPOSED TO BE GOING TO ?? "PHYSICAL THERAPY" ?? IN THE MORNING FOR THIS PROBLEM--SEEMS TO THINK THAT THEY WILL BE DOING SOMETHING WITH HER NECK THAT IS GOING TO HELP HER SWALLOW THIS IS PT'S 5TH VISIT HERE SINCE 09/2016--HAS ALSO SEEN DR. Tory SOLANO SEVERAL TIMES IN BETWEEN ER VISITS FIRST VISIT ON 10/08/16 WAS FOR ELEVATED BP--PT WAS LITERALLY CHECKING HER BP EVERY 5 TO 30 MINUTES --LITERALLY AROUND THE CLOCK/24 HOURS A DAY FOR DAYS ON END. PT HAS RECENTLY BEEN DX WITH HTN AND WAS INITIALLY STARTED ON BP MEDICATION 09/20/16--LISINOPRIL + BYSTOLIC-- PRIOR TO THAT, PT STATES SHE HAD NEVER BEEN ON ANY MEDICATION FOR ANYTHING. PT HAD BP MEDICATION CHANGED TO AMLODIPINE A WEEK AGO --PT STILL DOCUMENTING HER BP MULTIPLE TIMES EVERY DAY, EVEN THOUGH SHE HAS BEEN ADVISED AGAINST THIS, ANY ELEVATION AT ALL IN BP CAUSES PT TO BE VERY ANXIOUS, AND THEN SHE WILL TAKE BP MORE AND MORE OFTEN, AND ANXIETY INCREASES, SO DOES HER BP) PT SEEN HERE 10/15/16 FOR GI COMPLAINTS--WAS GIVEN RX FOR ZOFRAN ODT 8 MG PT SEEN AGAIN 10/18/16 FOR GI COMPLAINTS--WAS GIVEN RX FOR PHENERGAN SUPPOSITORIES 25 MG SEEN HERE AGAIN 10/22/16 FOR GI COMPLAINTS--WAS GIVEN RX FOR CIPRO PT DX WITH UTI ON 10/22/16 AND GIVEN A SHOT OF ROCEPHIN, WAS GIVEN RX FOR ANTIBIOTICS, BUT PT HAS NOT BEEN TAKING THEM--STATES SHE DOESN'T THINK SHE CAN SWALLOW THE PILLS--BUT ALSO STATES SHE DID NOT EVEN TRY TO SWALLOW THEM WAS SEEN BY DR. SOLANO TODAY AND GOT ANOTHER SHOT OF ROCEPHIN PT HAS ALSO BEEN GIVEN RX FOR ZOFRAN ODT, BUT HAS NOT TAKEN ANY "BECAUSE SHE DIDN'T THINK SHE HAD ANY SALIVA FOR IT TO DISSOLVE WITH"--STATES "AND IF I DRINK WATER WITH IT, IT INCREASES THE SEROTONIN LEVELS IN MY MOUTH" SO SHE WON' T TAKE IT. PT DID NOT RELATE TO ME SHE HAD RX FOR PHENERGAN SUPPOSITORIES, BUT ON LATER QUESTIONING, SHE HAS NOT USED THOSE EITHER. PT DENIES ANY ACTUAL ABDOMINAL PAIN NO DIARRHEA, BUT DOES NOT KNOW WHEN HER LAST BM WAS, BUT ALSO DENIES CONSTIPATION NO FEVER NO URINARY SYMPTOMS AND VOIDING A NORMAL AMOUNT NO CHEST PAIN OR SHORTNESS OF BREATH ON REVIEW OF OLD RECORDS, PT WAS ADMITTED 11/2013 AFTER A SYNCOPAL EPISODE AND HAD BEEN HAVING BLACK/TARRY STOOLS AND SEVERELY ANEMIC WITH HGB BETWEEN 5 AND 6 AND WAS TRANSFUSED. EGD DONE AT THAT TIME SHOWED A LARGE BLEEDING ULCER AND WAS TREATED WITH IV PROTONIX AND THEN SENT HOME WITH RX FOR ORAL PROTONIX. PT DOES NOT RELATE ANY OF THIS HISTORY TO ME. PCP: DR. 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 Allergies and Home Medications Allergies Coded Allergies: No Known Drug Allergies (Unverified , 08/06/13) Home Medications Amlodipine Besylate 5 Mg Tablet, 5 MG PO DAILY, (Reported) Ciprofloxacin HCl 500 Mg Tablet, 500 MG PO BID, #6 Prescribed by: NANCY ROCHA on 10/22/16 1052 Ondansetron 8 Mg Tab.rapdis, 8 MG PO 4 times a day, #10 Prescribed by: SARAH MILLS on 10/15/16 1420 Promethazine HCl 25 Mg Supp.rect, 25 MG RC Q6H PRN for NAUSEA/VOMITING-1ST LINE , #14 Ref 0 Prescribed by: GERA ESCALANTE on 10/18/16 1043 Review of Systems Constitutional: no symptoms reported Respiratory: No Symptoms Reported Cardiovascular: No Symptoms Reported Gastrointestinal: See HPI Genitourinary: No Symptoms Reported Musculoskeletal: no symptoms reported Skin: no symptoms reported Psychiatric/Neurological: Anxiety Endocrine: No Symptoms Reported Hematologic/Lymphatic: No Symptoms Reported Past Beafbne-Phqxmp-Wcxvnx Hx Patient Social History Alcohol Use: Denies Use Recreational Drug Use: No Smoking Status: Never a Smoker 2nd Hand Smoke Exposure: No Recent Foreign Travel: No Contact w/Someone Who Travel: No Recent Hopitalizations: No Immunizations Up To Date Tetanus Booster (TDap): Less than 5yrs Seasonal Allergies Seasonal Allergies: No Surgeries History of Surgeries: Yes (RHINOPLASTY; BENIGN CYST REMOVED FROM LEFT BREAST; EGD 11/2013) Surgeries: Breast Respiratory History of Respiratory Disorde: Yes Respiratory Disorders: Asthma Cardiovascular History of Cardiac Disorders: Yes Cardiac Disorders: Hypertension Neurological History of Neurological Disord: No Reproductive System Hx Reproductive Disorders: No Genitourinary History of Genitourinary Disor: No Gastrointestinal History of Gastrointestinal Di: Yes (DYSPHAGIA. GI BLEED IN 11/2013) Gastrointestinal Disorders: Gastroesophageal Reflux, Gastrointestinal Bleed, Ulcer Musculoskeletal History of Musculoskeletal Dis: Yes Musculoskeletal Disorders: Arthritis Endocrine History of Endocrine Disorders: No HEENT Loss of Vision: Denies Cancer History of Cancer: No (benign cyst L breast removed ) Psychosocial History of Psychiatric Problem: Yes Behavioral Health Disorders: Anxiety Integumentary History of Skin or Integumenta: No Blood Transfusions History of Blood Disorders: Yes (ANEMIA FROM GI BLEED 11/2013) Hx of Blood Transfusion YES Adverse Reaction to a Blood Tr: No Family Medical History Family Medial History: Completed stroke 19 FATHER Congenital heart disease G8 BROTHER Diabetes mellitus G8 BROTHER FH: breast cancer 19 MOTHER Hypertension G8 BROTHER G8 SISTER Myocardial infarction 19 FATHER Physical Exam Vital Signs Capillary Refill : General Appearance: WD/WN, no apparent distress HEENT: PERRL/EOMI, normal ENT inspection Neck: normal inspection Respiratory: normal breath sounds, no respiratory distress, no accessory muscle use Cardiovascular: regular rate, rhythm, no edema, no JVD, no murmur Gastrointestinal: normal bowel sounds, non tender, soft, no organomegaly, no pulsatile mass Extremities: normal inspection Back: normal inspection, no CVA tenderness Neurologic/Psychiatric: track superintendent II-XII nml as tested, no motor/sensory deficits, alert, oriented x 3 Skin: normal color, warm/dry Progress/Results/Core Measures Results/Orders Lab Results Laboratory Tests Test 10/25/16 00:12 10/25/16 00:21 Range/Units Urine Color YELLOW Urine Clarity CLEAR Urine pH 6 5-9 Urine Specific [place] 1.025 H 1.016-1.022 Urine Protein 2+ H NEGATIVE Urine Glucose (UA) NEGATIVE NEGATIVE Urine Ketones 4+ H NEGATIVE Urine Nitrite NEGATIVE NEGATIVE Urine Bilirubin 1+ H NEGATIVE Urine Urobilinogen 1 NORMAL MG/DL Urine Leukocyte Esterase 1+ H NEGATIVE Urine RBC (Auto) 4+ H NEGATIVE Urine RBC RARE /HPF Urine WBC RARE /HPF Urine Squamous Epithelial Cells RARE /HPF Urine Crystals NONE /LPF Urine Bacteria NEGATIVE /HPF Urine Casts PRESENT /LPF Urine Hyaline Casts 2-5 H /LPF Urine Mucus NEGATIVE /LPF Urine Culture Indicated NO White Blood Count 7.3 4.3-11.0 10^3/uL Red Blood Count 4.73 4.35-5.85 10^6/uL Hemoglobin 15.3 11.5-16.0 G/DL Hematocrit 45 35-52 % Mean Corpuscular Volume 95 80-99 FL Mean Corpuscular Hemoglobin 32 25-34 PG Mean Corpuscular Hemoglobin Concent 34 32-36 G/DL Red Cell Distribution Width 13.5 10.0-14.5 % Platelet Count 179 130-400 10^3/uL Mean Platelet Volume 11.5 H 7.4-10.4 FL Neutrophils (%) (Auto) 59 42-75 % Lymphocytes (%) (Auto) 29 12-44 % Monocytes (%) (Auto) 11 0-12 % Eosinophils (%) (Auto) 1 0-10 % Basophils (%) (Auto) 0 0-10 % Neutrophils # (Auto) 4.3 1.8-7.8 X 10^3 Lymphocytes # (Auto) 2.1 1.0-4.0 X 10^3 Monocytes # (Auto) 0.8 0.0-1.0 X 10^3 Eosinophils # (Auto) 0.1 0.0-0.3 10^3/uL Basophils # (Auto) 0.0 0.0-0.1 10^3/uL Sodium Level 145 135-145 MMOL/L Potassium Level 2.6 L 3.6-5.0 MMOL/L Chloride Level 102 98-107 MMOL/L Carbon Dioxide Level 22 21-32 MMOL/L Anion Gap 21 H 5-14 MMOL/L Blood Urea Nitrogen 15 7-18 MG/DL Creatinine 0.90 0.60-1.30 MG/DL Estimat Glomerular Filtration Rate > 60 BUN/Creatinine Ratio 17 Glucose Level 95 70-105 MG/DL Calcium Level 9.7 8.5-10.1 MG/DL Magnesium Level 1.8 1.8-2.4 MG/DL Total Bilirubin 0.9 0.1-1.0 MG/DL Aspartate Amino Transf (AST/SGOT) 20 5-34 U/L Alanine Aminotransferase (ALT/SGPT) 14 0-55 U/L Alkaline Phosphatase 47 40-136 U/L Troponin I < 0.30 <0.30 NG/ML Total Protein 7.2 6.4-8.2 GM/DL Albumin 4.1 3.2-4.5 GM/DL Amylase Level 47 25-125 U/L Lipase 25 8-78 U/L My Orders Orders - YOGESH HERRERA DO Saline Lock/Iv-Start (10/25/16 00:07) Ekg Tracing (10/25/16 00:07) Monitor-Rhythm Ecg Trace Only (10/25/16 00:07) Amylase (10/25/16 00:07) Cbc With Automated Diff (10/25/16 00:07) Comprehensive Metabolic Panel (10/25/16 00:07) Lipase (10/25/16 00:07) Magnesium (10/25/16 00:07) Troponin I (10/25/16 00:07) Ua Culture If Indicated (10/25/16 00:07) Saline Lock/Iv-Start (10/25/16 00:07) Lactated Ringers (Lr 1000 Ml Iv Solution (10/25/16 00:07) Ondansetron Injection (Zofran Injectio (10/25/16 00:15) Ondansetron Injection (Zofran Injectio (10/25/16 01:15) Scopolamine Patch (Transderm-Scop Patch) (10/25/16 01:15) D5 1/2 Ns W/Kcl 20 Meq/L (Dextrose 5%/0. (10/25/16 01:15) Potassium Chloride (Tablet) (Klor Con Ta (10/25/16 01:15) Acute Abd Series (10/25/16 01:03) Pantoprazole Injection (Protonix Injecti (10/25/16 01:15) Ct Chest/Abdomen/Pelvis Wo (10/25/16 01:28) Medications Given in ED Current Medications Medications Dose Ordered Sig/Gurpreet Route Start Time Stop Time Status Last Admin Dose Admin Lactated Ringer's 1,000 ml @ 0 mls/hr Q0M ONCE IV 10/25/16 00:07 10/25/16 00:11 DC 10/25/16 00:29 1,000 MLS/HR Ondansetron HCl 4 mg ONCE ONCE IVP 10/25/16 00:15 10/25/16 00:16 DC 10/25/16 00:28 4 MG Ondansetron HCl 4 mg ONCE ONCE IVP 10/25/16 01:15 10/25/16 01:16 DC 10/25/16 01:14 4 MG Pantoprazole 40 mg ONCE ONCE IV 10/25/16 01:15 10/25/16 01:16 DC 10/25/16 01:15 40 MG Scopolamine 1.5 mg ONCE ONCE TD 10/25/16 01:15 10/25/16 01:16 UNV 10/25/16 01:18 1.5 MG Progress Note : Progress Note PT REFUSES IV CONTRAST--GIVES NO REASON, JUST DOES NOT WANT IT. NAUSEA RESOLVED AND PT TOLERATING WATER AND ICE CHIPS PRIOR TO DISMISSAL PT COMFORTABLE GOING HOME PT HAS HISTORY OF ULCERS WITH GI BLEED AND GERD, WILL ADD CARAFATE AND PROTONIX GRANULE-FORM PT DOES NOT THINK SHE CAN SWALLOW PILLS. PT NEVER FOLLOWED UP FOR ANOTHER EGD AFTER SHE WAS INITIALLY DX IN 2014 WITH GI BLEED/ ULCERS, AND HAS NOT BEEN ON GI MEDICATION SINCE THEN. ECG Initial ECG Impression Time: 00:27 Initial ECG Rate: 91 Initial ECG Rhythm: Normal Sinus Diagnostic Imaging Comments ACUTE ABDOMEN XRAYS--NO ACUTE PROCESS, PENDING RADIOLOGIST REVIEW CT ABDOMEN/PELVIS--NO ACUTE PROCESS, 2.6 CM RIGHT ADNEXAL CYST, RENAL CYSTS, NO INTRATHORACIC ABNORMALITIES--PER [facility] VIA FAX @ 0620 Reviewed: Reviewed by Me Departure Communication (PCP) [phone]--SPOKE WITH DR. Toyr SOLANO. PT DOES NOT MEET ADMISSION CRITERIA, HE ADVISES THAT PT CALL DR. LORA'S OFFICE TO RESCHEDULE EGD. Impression Impression: Primary Impression: NAUSEA AND DRY HEAVES Additional Impressions: Dysphagia Hx of gastroesophageal reflux (GERD) HX OF GASTRIC ULCER WITH GI BLEED Disposition: HOME, SELF-CARE Condition: Improved Departure-Patient Inst. Referrals: VISHAL LORA CHAD C MD (PCP/Family) Primary Care Physician Patient Instructions: Dysphagia (DC), Full Liquid Diet, Nausea and Vomiting, Adult (DC), Pureed Diet Add. Discharge Instructions: LOTS OF LIQUIDS AND FOODS THAT DO NOT REQUIRE CHEWING CALL DR. LORA'S OFFICE TODAY TO RESCHEDULE EGD TAKE YOUR ZOFRAN EVERY 4 HOURS NEEDED FOR NAUSEA, AND YOU MAY USE PHENERGAN SUPPOSITORIES WELL, IF NEEDED FOLLOW UP WITH DR. SOLANO NEXT WEEK FOR FURTHER CARE All discharge instructions reviewed with patient and/or family. Voiced understanding. Scripts Pantoprazole Sodium (Protonix) 40 Mg Granpkt.dr 40 MG PO DAILY, #15 UNITS Prov: YOGESH HERRERA DO 10/25/16 Sucralfate (Carafate) 1 Gm/10 Ml Oral.susp 1 GM PO QID AC AND HS, #400 ML Prov: YOGESH HERRERA DO 10/25/16 YOGESH HERRERA DO Oct 25, 2016 03:20
[2016-10-25 03:50] VITALS: BP 173/106
[2016-10-25] MEDS ORDERED: SUCR1ORA5 PO (03:52)
[2016-10-25] MEDS ORDERED: PANT40SU PO (03:52)
--- NOTE | 2016-10-25 06:12 | Diagnostic Imaging Report ---
INDICATION: Weakness. Nausea and vomiting. COMPARISON: CT chest, abdomen, and pelvis from the same day FINDINGS: Supine and upright views of the abdomen show a nondistended bowel gas pattern. No abnormal air fluid levels or free intraperitoneal air is seen. Patient's known bilateral renal calculi are essentially inconspicuous on this exam. Bony and soft tissue structures are within normal limits. No organomegaly is identified. Accompanying upright chest shows normal heart size and pulmonary vascularity. The lungs are well aerated and clear. The mediastinum is normal in appearance. IMPRESSION: 1. No bowel obstruction or free air. 2. Normal chest. No pneumonia or pulmonary edema. 3. Patient's known bilateral renal calculi are essentially inconspicuous on this exam. Dictated by: Dictated on workstation # [id number]
--- NOTE | 2016-10-25 07:07 | Diagnostic Imaging Report ---
PROCEDURE: CT chest, abdomen, and pelvis without contrast. TECHNIQUE: Multiple contiguous axial images were obtained through the chest, abdomen, and pelvis without the use of intravenous contrast. INDICATION: Weakness, nausea, and vomiting. COMPARISON: CT abdomen/ pelvis dated 11/26/2013. FINDINGS: CT chest: Evaluation of the lung fischer demonstrates no focal consolidation, pleural effusion, or pneumothorax. There is small micronodule within the left lower lobe that measures approximately 2 to 3 mm (image 31, series 2.) Otherwise, no pulmonary masses are identified. Cardiomediastinal structures show normal heart size. There is no large pericardial effusion. No pathologically enlarged or morphologically abnormal adenopathy is seen within the mediastinum, asael, or axilla. There is mild calcified aortic atherosclerosis. Small hiatal hernia is also noted. A 1.3-cm hypodensity of the left thyroid lobe is noted (image 11, series 2.) Bony structures show no acute abnormalities. CT abdomen: There is colonic diverticulosis but no CT evidence of acute diverticulitis. Normal appendix cannot be adequately identified, but there is no pericecal inflammation. Small bowel loops are nondistended. Hypodense exophytic cyst of the right kidney is noted. Note is also made of some minimal calcifications along the inferior margins of the cyst. Cyst is stable in size measuring 1.5 cm. This is in comparison to 1.7 cm previously. Bilateral nonobstructive renal calculi are also noted. No renal calculi are seen on either side. Additionally, there is no hydroureteronephrosis or other evidence of obstruction. The adrenal glands, spleen, pancreas, and liver have an unremarkable noncontrast CT appearance. Gallbladder has a somewhat hyperdense appearance. There is no loculated fluid collection, free fluid, or free air within the abdomen. No abnormal mesenteric or retroperitoneal adenopathy is seen. There is mild calcified aortic and arterial atherosclerosis. Bony structures show no acute abnormalities. CT pelvis: Right adnexal cyst measures 3.1 x 1.8 cm. This is stable compared to prior exam. There is no loculated fluid collection, free fluid, or free air within the pelvis. Urinary bladder is not opacified. No calculi are seen within the urinary bladder. No abnormal lymph nodes are seen. Bony structures show no acute abnormalities. IMPRESSION: 1. No acute abnormalities within the chest, abdomen, or pelvis. 2. Hypodense lesion in the left thyroid lobe. Further characterization with dedicated thyroid sonogram is recommended when clinically appropriate. 3. Small micronodule within the left lower lobe of the lungs. One-year followup is recommended to ensure stability. 4. Small hiatal hernia. 5. Bilateral nonobstructive renal calculi. 6. Colonic diverticulosis but no CT evidence of acute diverticulitis. 7. Probable cystic lesion in the right kidney. Although this is incompletely characterized and has some small calcifications, it is stable in size when compared to 2014. 8. Right adnexal cyst; likely ovarian. This too is stable compared to 2014. Dictated by: Dictated on workstation # [id number]
== END 2016-10-25 03:50 | disposition home or self-care (01) ==
LOC: EDUNIT# 23:55 → ER 10-25
DX: R11.2 Nausea with vomiting, unspecified (principal); R13.10 Dysphagia, unspecified; K21.9 Gastro-esophageal reflux disease without esophagitis; D64.9 Anemia, unspecified; F41.9 Anxiety disorder, unspecified; M19.90 Unspecified osteoarthritis, unspecified site; I10 Essential (primary) hypertension; J45.909 Unspecified asthma, uncomplicated; Z87.19 Personal history of other diseases of the digestive system; Z80.3 Family history of malignant neoplasm of breast; Z82.49 Family history of ischemic heart disease and other diseases of the circulatory system
CPT/HCPCS: 36415; 71250; 74022; 74176; 80053; 81000; 82150; 83690; 83735; 84484; 85025; 93005; 93041; 96361; 96374; 96375; 96376

== ENCOUNTER → 2016-10-26 | Outpatient (CLI) | payer MEDICARE ==
[~2016-10-26] MED LIST changes: +BARIUM SUSPENSION 60% (LIQUID EZ PAQUE) 240 ML DOSE PO ONE; +PANT40SU PO; +SUCR1ORA5 PO
--- NOTE | 2016-10-26 11:07 | Diagnostic Imaging Report ---
Barium swallow. INDICATION: Dysphagia. There are no previous studies available for comparison. The patient was very reluctant to swallow the barium. She was only able to take one or two small sips before she asked that the exam be discontinued. The visualized portions of the esophagus show no obvious obstruction, and the contrast is seen extending into the stomach. IMPRESSION: 1. There is no evidence for obstruction of the esophagus, but this exam is of limited diagnostic value. 2. These results were discussed with Dr. Jose Miguel Canela. Dictated by: Dictated on workstation # [id number]
== END ==
LOC: RAD 09:28
PROVIDERS: ATTEND Surgery
DX: R13.10 Dysphagia, unspecified (principal)
CPT/HCPCS: 74220

== ENCOUNTER 2016-10-30 09:50 | Emergency (ER) | payer MEDICARE ==
[~2016-10-30] VITALS: Ht 167.6 cm; Wt 64.4 kg
[~2016-10-30 09:50] MED LIST changes: -BARIUM SUSPENSION 60% (LIQUID EZ PAQUE) 240 ML DOSE PO ONE
[2016-10-30] MEDS ORDERED: LACTATED RINGERS 1,000 ML IV ONE (10:40)
--- NOTE | 2016-10-30 11:00 | ED General ---
General Chief Complaint: General Problems/Pain Stated Complaint: NAUSEA/HIGH BLOOD PRESSURE Nursing Triage Note: TO ED PER W/C CONCERN ABOUT HER B/P AND AND SINCE Sep HAS NOT BEEN ABLE TO EAT. HAS SCOPE SCHEDULED TOMORROW WITH DR LORA. Nursing Sepsis Screen: No Definite Risk Source of Information: Patient Exam Limitations: No Limitations History of Present Illness Time Seen by Provider: 10:29 Initial Comments Here with report of a variety of complaints. Ultimately resolves around not been able to keep foods down. She is able to take liquids and Jell-O and broth. She has EGD scheduled for tomorrow. She has had multiple visits over the last 3 weeks all regarding the same concerns. She reports that her blood pressure was elevated. She admits to anxiety about medical problems. She has seen her provider several times as well. She did miss her last EGD appointment because her stomach hurt and she went to her primary care doctor instead. Denies fever or chills. Denies diarrhea. Timing/Duration: Other (3 weeks) Severity: Moderate Associated Systoms: No Chest Pain, No Cough, No Fever/Chills, No Headaches, Nausea/Vomiting, No Shortness of Air, Weakness Allergies and Home Medications Allergies Coded Allergies: No Known Drug Allergies (Unverified , 08/06/13) Home Medications Amlodipine Besylate 5 Mg Tablet, 5 MG PO DAILY, (Reported) Ondansetron 8 Mg Tab.rapdis, 8 MG PO 4 times a day, #10 Prescribed by: SARAH MILLS on 10/15/16 1420 Constitutional: see HPI, No chills, No fever EENTM: no symptoms reported Respiratory: no symptoms reported, No cough, No short of breath Cardiovascular: no symptoms reported Gastrointestinal: abdominal pain, No diarrhea, nausea, vomiting Genitourinary: No dysuria, No pain : No Musculoskeletal: no symptoms reported Skin: no symptoms reported Psychiatric/Neurological: See HPI, Anxiety, Depressed Hematologic/Lymphatic: No Symptoms Reported All Other Systems Reviewed Negative Unless Noted: Yes Past Tkvzbao-Yvzhmu-Htokvo Hx Patient Social History Alcohol Use: Denies Use Recreational Drug Use: No Smoking Status: Never a Smoker 2nd Hand Smoke Exposure: No Recent Foreign Travel: No Contact w/Someone Who Travel: No Recent Infectious Disease Expo: No Recent Hopitalizations: No Immunizations Up To Date Tetanus Booster (TDap): Less than 5yrs Seasonal Allergies Seasonal Allergies: No Surgeries History of Surgeries: Yes (RHINOPLASTY; BENIGN CYST REMOVED FROM LEFT BREAST; EGD 11/2013) Surgeries: Breast Respiratory History of Respiratory Disorde: Yes Respiratory Disorders: Asthma Cardiovascular History of Cardiac Disorders: Yes Cardiac Disorders: Hypertension Neurological History of Neurological Disord: No Reproductive System Hx Reproductive Disorders: No Genitourinary History of Genitourinary Disor: No Gastrointestinal History of Gastrointestinal Di: Yes (DYSPHAGIA. GI BLEED IN 11/2013) Gastrointestinal Disorders: Gastroesophageal Reflux, Gastrointestinal Bleed, Ulcer Musculoskeletal History of Musculoskeletal Dis: Yes Musculoskeletal Disorders: Arthritis Endocrine History of Endocrine Disorders: No HEENT History of HEENT Disorders: No Loss of Vision: Denies Cancer History of Cancer: No (benign cyst L breast removed ) Psychosocial History of Psychiatric Problem: Yes Behavioral Health Disorders: Anxiety Integumentary History of Skin or Integumenta: No Blood Transfusions History of Blood Disorders: Yes (ANEMIA FROM GI BLEED 11/2013) Adverse Reaction to a Blood Tr: No Reviewed Nursing Assessment Reviewed/Agree w Nursing PMH: Yes Family Medical History Significant Family History: No Pertinent Family Hx Family Medial History: Completed stroke 19 FATHER Congenital heart disease G8 BROTHER Diabetes mellitus G8 BROTHER FH: breast cancer 19 MOTHER Hypertension G8 BROTHER G8 SISTER Myocardial infarction 19 FATHER Physical Exam Vital Signs Vital Sign - Last 12Hours 10/30/16 10:04 Temp 98.5 Pulse 79 Resp 18 B/P (MAP) 180/90 Pulse Ox 98 Capillary Refill : Less Than 3 Seconds General Appearance: No Apparent Distress, WD/WN HEENT: PERRL/EOMI, Pharynx Normal Neck: Full Range of Motion, Supple Respiratory: Lungs Clear, Normal Breath Sounds Cardiovascular: Regular Rate, Rhythm, No Murmur Gastrointestinal: Non Tender, Soft Back: Normal Inspection, No CVA Tenderness Extremity: Normal Range of Motion, Non Tender Neurologic/Psychiatric: Alert, Oriented x3, No Motor/Sensory Deficits Skin: Normal Color, Warm/Dry Progress/Results/Core Measures Results/Orders Lab Results Laboratory Tests Test 10/30/16 10:51 Range/Units Sodium Level 145 135-145 MMOL/L Potassium Level 3.1 L 3.6-5.0 MMOL/L Chloride Level 103 98-107 MMOL/L Carbon Dioxide Level 25 21-32 MMOL/L Anion Gap 17 H 5-14 MMOL/L Blood Urea Nitrogen 18 7-18 MG/DL Creatinine 0.78 0.60-1.30 MG/DL Estimat Glomerular Filtration Rate > 60 BUN/Creatinine Ratio 23 Glucose Level 100 70-105 MG/DL Calcium Level 9.6 8.5-10.1 MG/DL My Orders Orders - FRANCO GARSIA MD Basic Metabolic Panel (10/30/16 10:40) Saline Lock/Iv-Start (10/30/16 10:40) Lactated Ringers (Lr 1000 Ml Iv Solution (10/30/16 10:40) Medications Given in ED Current Medications Medications Dose Ordered Sig/Gurpreet Route Start Time Stop Time Status Last Admin Dose Admin Lactated Ringer's 1,000 ml @ 0 mls/hr Q0M ONCE IV 10/30/16 10:40 10/30/16 10:42 DC 10/30/16 11:00 1,000 MLS/HR Vital Signs/I&O Vital Sign - Last 12Hours 10/30/16 10:04 Temp 98.5 Pulse 79 Resp 18 B/P (MAP) 180/90 Pulse Ox 98 Blood Pressure Mean: 120 Progress Note : Progress Note Seen and evaluated. We will check labs due to recent hypokalemia noted on previous lab. We'll give 1 L of LR as she has had some dehydration recently as well. Patient is to have EGD tomorrow. She was instructed extensively on the need to complete that. Patient verbalize understanding. Monitor patient. 1145 : Fluids did help. Labs reviewed. Potassium is slightly low but not significant. She does have EGD scheduled for tomorrow. She was instructed again in follow-up for that. She will continue home medications and instructions prior to EGD. She will keep that appointment tomorrow. Discharged home with return precautions. Patient verbalize understanding instructions and agreement with plan. Departure Impression Impression: Primary Impression: Upper abdominal pain Additional Impression: Nausea and vomiting Qualified Codes: R11.2 - Nausea with vomiting, unspecified Disposition: HOME, SELF-CARE Condition: Improved Departure-Patient Inst. Decision time for Depature: 11:51 Referrals: KISHA SOLANO MD (PCP/Family) Primary Care Physician Patient Instructions: Acute Abdomen (Belly Pain), Adult (DC) Add. Discharge Instructions: All discharge instructions reviewed with patient and/or family. Voiced understanding. Continue home medications as previously prescribed. Continue directions for preop for the EGD as previously scheduled. Keep appointment for EGD as previously scheduled. Follow up with your doctor this week for recheck and further evaluation. Return for worse pain, fever, vomiting, weakness, breathing problems or other concerns as needed. Copy Copies To 1: KISHA SOLANO MD, TIMOTHY D MD Oct 30, 2016 11:00
[2016-10-30 11:16] LABS: ANION GAP 17 MMOL/L (5-14); BLOOD UREA NITROGEN 18 MG/DL (7-18); BUN/CREATININE RATIO 23; CALCIUM 9.6 MG/DL (8.5-10.1); CARBON DIOXIDE 25 MMOL/L (21-32); CHLORIDE 103 MMOL/L (98-107); CREATININE SERUM 0.78 MG/DL (0.60-1.30); GFR ESTIMATED > 60; GLUCOSE 100 MG/DL (70-105); POTASSIUM 3.1 MMOL/L (3.6-5.0); SODIUM 145 MMOL/L (135-145)
[2016-10-30 11:58] VITALS: BP 162/83
[2016-10-31] MEDS ORDERED: PANT40TA2 PO (09:21)
[2016-10-31] MEDS ORDERED: SUCR1TAB36 PO (09:21)
== END 2016-10-30 11:58 | disposition home or self-care (01) ==
LOC: EDUNIT# 09:50 → ER 09:54
DX: R10.10 Upper abdominal pain, unspecified (principal); R11.2 Nausea with vomiting, unspecified; J45.909 Unspecified asthma, uncomplicated; I10 Essential (primary) hypertension; K21.9 Gastro-esophageal reflux disease without esophagitis; M19.90 Unspecified osteoarthritis, unspecified site; F41.9 Anxiety disorder, unspecified; Z80.3 Family history of malignant neoplasm of breast; Z82.49 Family history of ischemic heart disease and other diseases of the circulatory system; Z87.19 Personal history of other diseases of the digestive system
CPT/HCPCS: 36415; 80048

== ENCOUNTER 2016-10-31 07:11 | Day surgery (SDC) | payer MEDICARE ==
[~2016-10-31] VITALS: Ht 167.6 cm; Wt 64.4 kg
[2016-10-31 07:30] VITALS: BP 156/107
[2016-10-31] MEDS ORDERED: LACTATED RINGERS 1,000 ML IV ONE (07:45)
--- NOTE | 2016-10-31 07:56 | Progress Note-Pre Operative ---
Pre-Operative Progress Note H&P Reviewed The H&P was reviewed, patient examined and no changes noted. Date Seen by Provider: Oct 31, 2016 Time Seen by Provider: 07:53 Date H&P Reviewed: Oct 31, 2016 Time H&P Reviewed: 07:55 Pre-Operative Diagnosis: dysphagia VISHAL LORA DO Oct 31, 2016 7:56 am
[2016-10-31] MEDS ORDERED: LACTATED RINGERS 1,000 ML IV PRN (08:00)
[2016-10-31] MEDS ORDERED: HURRICAINE EXT TUBE (BENZOCAINE) XX PRN (08:00)
[2016-10-31] MEDS ORDERED: proPOfol 200 MG/20 ML (DIPRIVAN) VIAL IV ONE (08:44)
[2016-10-31] MEDS ORDERED: LIDOCAINE PF 2% 5 ML (XYLOCAINE) VIAL ONE (08:45)
[2016-10-31] MEDS ORDERED: PANTOPRAZOLE 40 MG/10 ML (PROTONIX) VIAL ONE (09:10)
--- NOTE | 2016-10-31 09:19 | Progress Note-Post Operative ---
Post-Operative Progess Note Surgeon (s)/Web Administrator (s) Surgeon VISHAL LORA DO Web Administrator: na Pre-Operative Diagnosis dysphagia Post-Operative Diagnosis hiatal hernia, duodenitis Procedure & Operative Findings Date of Procedure 10/31/16 Procedure Performed/Findings egd c biopsy duodenum and antrum Anesthesia Type per certified professional coder Estimated Blood Loss Estimated blood loss (mL): none Specimens/Packing Specimens Removed duodenum and antrum VISHAL LORA DO Oct 31, 2016 9:19 am
[2016-10-31] MEDS ORDERED: PANT40TA2 PO (09:21)
[2016-10-31] MEDS ORDERED: SUCR1TAB36 PO (09:21)
--- NOTE | 2016-10-31 09:22 | Discharge Inst-Simple/Standard ---
Discharge Inst-Standard Discharge Medications New, Converted or Re-Newed RX: Transmitted to Pharmacy Patient Instructions/Follow Up Plan of Care/Instructions/FU: 2 weeks Rola Activity as Tolerated: Yes Discharge Diet: Regular Diet Other Inst to Patient Symptoms to Report: Appetite Changes, Extremity Discoloration, Numbness/Tingling, Swelling Increased , Bleeding Excessive, Eyesight Changes, Pain Increased, Urine Color Change, Constipation(Persistent), Fever over 101 degree F, Pain/Pressure in chest, Urinating Difficulty, Cough Up/Vomit Blood, Heart Beat Irreg/Pounding, Pain/ Pressure in jaw, Vaginal Bleeding Increase, Cramps in feet or legs, Lightheadedness, Pain/Pressure in shoulder, Diarrhea(Persistent), Memory Changes Suddenly, Questions/Concerns, Weight gain consecutive days, Dizziness/ Fainting, Nausea/Vomiting, Shortness of Breath, Weight gain over 2 pounds If questions or concerns contact your physician Or seek help at emergency department. VISHAL LORA DO Oct 31, 2016 9:22 am
[2016-10-31 09:45] VITALS: BP 180/98
--- NOTE | 2016-10-31 09:47 | OPERATIVE REPORT ---
DATE OF SERVICE: 10/31/2016 PREOPERATIVE DIAGNOSIS: Dysphagia. POSTOPERATIVE DIAGNOSES: 1. Duodenitis. 2. Hiatal hernia. PROCEDURE: EGD with biopsy of the duodenum and antrum. SURGEON: Vishal Canela DO ANESTHESIA: Per EVENT SERVICES MANAGER. ESTIMATED BLOOD LOSS: None. COMPLICATIONS: None. INDICATIONS: The patient is a 71-year-old female who has been having difficulty swallowing. She understands risks and benefits of procedure and wished to proceed with procedure. Consent was signed and place in the chart. PROCEDURE: The patient was taken to the endoscopy suite, placed in left lateral recumbent position. Timeout was performed. Scope was inserted in mouth, down the esophagus, stomach and into the duodenum without difficulty. The duodenum had in the first portion erythematous changes. A questionable healing ulcer. Biopsy of this area was obtained. The scope was then slowly retracted back into the stomach where it was further insufflated. Some small little polyps were present. There were no erythematous changes or ulcerations. Biopsy, antrum was obtained. Scope was also retroflexed noting a hiatal hernia. No other pathology noted. Scope was returned to its normal position, slowly withdrawn to the distal esophagus which had no other pathology noted. Scope was slowly retracted back. There were no strictures, polyps, masses or ulcerations visualized in the remainder of the esophagus. Scope was slowly retracted until completely removed. The patient tolerated the procedure well without any complications. She was taken to recovery room in stable condition. RECOMMENDATIONS: The patient will be placed on Protonix 40 mg daily and Carafate 1 gram four times a day. She will follow up in the office in 2 weeks. Job ID: [id number] DocumentID: [id number] Dictated Date: 10/31/2016 09:25:26 Head Cleaning Porter Date: 10/31/2016 09:46:27 Dictated By: VISHAL CANELA DO
[2016-10-31 10:10] VITALS: BP 167/99
[2016-10-31 12:27] VITALS: BP 167/99
== END 2016-10-31 11:25 | disposition home or self-care (01) ==
LOC: ENDO 07:11
PROVIDERS: ATTEND Surgery
DX: K29.80 Duodenitis without bleeding (principal); K44.9 Diaphragmatic hernia without obstruction or gangrene; I10 Essential (primary) hypertension; F41.9 Anxiety disorder, unspecified; Z86.73 Personal history of transient ischemic attack (TIA), and cerebral infarction without residual deficits; Z79.899 Other long term (current) drug therapy
CPT/HCPCS: 88305

== ENCOUNTER 2016-11-05 07:34 | Emergency (ER) | payer MEDICARE ==
[~2016-11-05] VITALS: Ht 167.6 cm; Wt 64.4 kg
[~2016-11-05 07:34] MED LIST changes: +PANT40TA2 PO; +SUCR1TAB36 PO
[2016-11-05] MEDS ORDERED: ONDANSETRON 4 MG/2 ML (SDV) Z0FRAN IM ONE (08:15)
--- NOTE | 2016-11-05 08:41 | ED General ---
General Chief Complaint: Abdominal/GI Problems Stated Complaint: DRY HEAVING, [place]UEA Nursing Triage Note: pt c/o nausea Nursing Sepsis Screen: No Definite Risk Source of Information: Patient Exam Limitations: No Limitations History of Present Illness Time Seen by Provider: 07:50 Initial Comments Here with report of nausea and a lot of vague complaints. She has been seen multiple times in the ER for the same including previously by me as well. Workup has not found anything of significance. She did have upper endoscopy on 10/31/16 which did not find anything of significance either. Patient states she is not sure what's going on but she still has difficulty swallowing. She feels something in her neck and head. She does report previous history of TIA and previous history of falls. These were evaluated previously but she is concerned that there is something else going on. Timing/Duration: Changing Over Time, Other (3 weeks) Severity: Moderate Associated Systoms: No Chest Pain, No Cough, No Fever/Chills, Nausea/Vomiting, No Shortness of Air, No Weakness Allergies and Home Medications Allergies Coded Allergies: No Known Drug Allergies (Unverified , 08/06/13) Home Medications Amlodipine Besylate 5 Mg Tablet, 5 MG PO DAILY, (Reported) Ondansetron 8 Mg Tab.rapdis, 8 MG PO 4 times a day, #10 Prescribed by: SARAH MILLS on 10/15/16 1420 Pantoprazole Sodium 40 Mg Tablet.dr, 40 MG PO DAILY, #30 Prescribed by: VISHAL LORA on 10/31/16 0921 Sucralfate 1 Gm Tablet, 1 GM PO QID, #120 Ref 4 Prescribed by: VISHAL LORA on 10/31/16 0921 Constitutional: see HPI, No chills, No fever EENTM: see HPI, other (throat sensation of foreign body or something pressing from her neck.) Respiratory: No cough, No short of breath Cardiovascular: No chest pain, No edema Gastrointestinal: constipation, No diarrhea, nausea, No vomiting Genitourinary: no symptoms reported Musculoskeletal: No joint pain, neck pain Skin: no symptoms reported Psychiatric/Neurological: See HPI, Anxiety, Denies Weakness All Other Systems Reviewed Negative Unless Noted: Yes Past Yrvofmi-Qlfvto-Yzveob Hx Patient Social History Alcohol Use: Denies Use Recreational Drug Use: No Smoking Status: Never a Smoker 2nd Hand Smoke Exposure: No Recent Foreign Travel: No Contact w/Someone Who Travel: No Recent Infectious Disease Expo: No Recent Hopitalizations: No Immunizations Up To Date Tetanus Booster (TDap): Less than 5yrs Seasonal Allergies Seasonal Allergies: No Surgeries History of Surgeries: Yes (RHINOPLASTY; BENIGN CYST REMOVED FROM LEFT BREAST; EGD 11/2013) Surgeries: Breast Respiratory History of Respiratory Disorde: Yes Respiratory Disorders: Asthma Cardiovascular History of Cardiac Disorders: Yes Cardiac Disorders: Hypertension Neurological History of Neurological Disord: No Reproductive System Hx Reproductive Disorders: No Genitourinary History of Genitourinary Disor: No Gastrointestinal History of Gastrointestinal Di: Yes (DYSPHAGIA. GI BLEED IN 11/2013) Gastrointestinal Disorders: Gastroesophageal Reflux, Gastrointestinal Bleed, Ulcer Musculoskeletal History of Musculoskeletal Dis: Yes Musculoskeletal Disorders: Arthritis Endocrine History of Endocrine Disorders: No HEENT History of HEENT Disorders: No Loss of Vision: Denies Cancer History of Cancer: No (benign cyst L breast removed ) Psychosocial History of Psychiatric Problem: Yes Behavioral Health Disorders: Anxiety Integumentary History of Skin or Integumenta: No Blood Transfusions History of Blood Disorders: Yes (ANEMIA FROM GI BLEED 11/2013) Adverse Reaction to a Blood Tr: No Reviewed Nursing Assessment Reviewed/Agree w Nursing PMH: Yes Family Medical History Significant Family History: No Pertinent Family Hx Family Medial History: Completed stroke 19 FATHER Congenital heart disease G8 BROTHER Diabetes mellitus G8 BROTHER FH: breast cancer 19 MOTHER Hypertension G8 BROTHER G8 SISTER Myocardial infarction 19 FATHER Physical Exam Vital Signs Vital Sign - Last 12Hours 11/05/16 07:52 Temp 98.9 Pulse 88 Resp 16 B/P (MAP) 174/99 Pulse Ox 98 O2 Delivery Room Air Capillary Refill : Less Than 3 Seconds General Appearance: WD/WN, Anxious HEENT: PERRL/EOMI, TMs Normal, Normal ENT Inspection, Pharynx Normal Neck: Non Tender, Supple Respiratory: Lungs Clear, Normal Breath Sounds Cardiovascular: Regular Rate, Rhythm, No Murmur Gastrointestinal: Non Tender, Soft Back: Normal Inspection, No CVA Tenderness, No Vertebral Tenderness Extremity: Normal Range of Motion, Non Tender Neurologic/Psychiatric: Alert, Oriented x3 Skin: Normal Color, Warm/Dry Progress/Results/Core Measures Results/Orders My Orders Orders - FRANCO GARSIA MD Ct Head Wo (11/05/16 08:10) Ct Neck (Soft Tissue) Wo (11/05/16 08:10) Acute Abd Series (11/05/16 08:10) Ondansetron Injection (Zofran Injectio (11/05/16 08:15) Medications Given in ED Current Medications Medications Dose Ordered Sig/Gurpreet Route Start Time Stop Time Status Last Admin Dose Admin Ondansetron HCl 4 mg ONCE ONCE IM 11/05/16 08:15 11/05/16 08:16 DC 11/05/16 08:30 4 MG Vital Signs/I&O Vital Sign - Last 12Hours 11/05/16 07:52 Temp 98.9 Pulse 88 Resp 16 B/P (MAP) 174/99 Pulse Ox 98 O2 Delivery Room Air Blood Pressure Mean: 124 Progress Note : Progress Note Seen and evaluated. We will get CT of the head and neck due to history of concerns of previous stroke and soft tissue concerns. Abdominal x-ray ordered due to report of constipation. We'll hold on IV and labs at this point as we have had multiple evaluations over the last couple of weeks and there has not been any abnormal findings. I have reviewed the recent laboratory and x-ray data in the chart. Monitor patient. 1000: Labs and x-rays reviewed. Patient will likely need further imaging including potentially ultrasound of the neck and MRI of the head as indicated. Copy of chart to Dr. Jefe Solano. Discussed outpatient treatment for constipation including fleets enema and MiraLAX. Patient verbalize understanding. Discharged home with return precautions. Patient verbalize understanding instructions and agreement with plan. Diagnostic Imaging Diagonstic Imaging: Xray Plain Films/CT/US/NM/MRI: chest, abdomen Comments [facility]IA [facility]. [place], [place] NAME: JIMMIE RODRIGUES [facility] REC#: [id number] PT STATUS: REG ER : 1945 PHYSICIAN: FRANCO GARSIA MD ADMIT DATE: 11/05/16/ER Draft Date of Exam:11/05/16 ACUTE ABD SERIES EXAMINATION: Abdominal series with PA chest INDICATION: Dizziness, nausea, and difficulty swallowing FINDINGS: The lungs appear clear without focal infiltrate or effusion. There is no pneumothorax. Heart size and mediastinal contours are appropriate. Pulmonary vascularity appears within normal limits. Bowel gas pattern appears nonobstructed. There is moderate stool demonstrated within the colon. No unexpected abdominal calcifications are present. There is no acute osseous abnormality. IMPRESSION: 1. No radiographic evidence of an acute cardiopulmonary process. 2. Moderate stool within the colon. The bowel gas pattern is nonobstructed. There is no free air. Dictated on workstation # [id number] Dict: 11/05/16 0845 Trans: 11/05/16910 ANTONIA [id number] Interpreted by: HAMIDA MARINA MD Electronically signed by: Diagonstic Imaging: CT Plain Films/CT/US/NM/MRI: head Comments VIA [facility]. [place], [place] NAME: JIMMIE RODRIGUES [facility] REC#: [id number] PT STATUS: REG ER : 1945 PHYSICIAN: FRANCO GARSIA MD ADMIT DATE: 11/05/16/ER Draft Date of Exam:11/05/16 CT HEAD WO PROCEDURE: CT head without contrast. TECHNIQUE: Multiple contiguous axial images were obtained through the brain without the use of intravenous contrast. INDICATION: Dizziness, nausea and left-sided neck pain. Comparison is made to prior from November 26, 2013. FINDINGS: There is no CT evidence of intracranial hemorrhage. There is no evidence of intracranial mass effect or shift. There is no hydrocephalus. The basilar cisterns appear patent. Costa and white differentiation appear preserved. There is no evidence of abnormal hypodensity within the basal ganglia. There is no abnormal hypodensity evident within the erik. There is some mild atherosclerotic calcification demonstrated within the vessels at the skull base. No focally abnormal hyperdense vessel demonstrated. The mastoid air cells appear clear. There is a mucous retention cyst in the right maxillary sinus. IMPRESSION: 1. There is no CT evidence of an acute intracranial abnormality. Given history of dizziness, nausea, neck pain and difficulty swallowing, MRI could be considered to evaluate for the possibility of a lateral medullary infarct. Dictated on workstation # [id number] Dict: 11/05/16 0829 Trans: 11/05/1616 ANTONIA [id number] Interpreted by: HAMIDA MARINA MD Electronically signed by: Millien[facility] Imaging: CT Plain Films/CT/US/NM/MRI: other (neck) Comments NAME: JIMMIE RODRIGUES [facility] REC#: [id number] PT STATUS: REG ER : 1945 PHYSICIAN: FRANCO GARSIA MD ADMIT DATE: 11/05/16/ER Signed Date of Exam: 11/05/16 CT NECK (SOFT TISSUE) WO PROCEDURE: CT neck soft tissue without contrast. TECHNIQUE: Multiple contiguous axial images were obtained through the neck without the use of intravenous contrast. INDICATION: Left-sided neck pain with difficulty swallowing. Nausea and dizziness. FINDINGS: The visualized intracranial contents are unremarkable. The mastoid air cells are clear. There is a mucous retention cyst in the right maxillary sinus. The visualized portion of the orbits are normal. The posterior nasopharynx and oropharynx demonstrate no significant asymmetry and there is no displacement of the parapharyngeal fat planes. There is no abnormal process within the prevertebral retropharyngeal space. There is no evidence of thickening of the epiglottis. The vocal folds appear symmetric. The parotid, submandibular and thyroid glands are unremarkable. There is no evidence of pathologic enlargement of cervical lymph nodes. No neck mass, focal inflammation or fluid collection demonstrated. Lung apices demonstrate some apical pleural-parenchymal scarring. There is no pneumothorax. There are multilevel degenerative features present within the cervical spine but no acute or suspicious osseous abnormality evident. IMPRESSION: 1. Aerodigestive tract demonstrates appropriate symmetry without noncontrast CT evidence of abnormal mucosal based soft tissue thickening. There is no pathologic adenopathy 2. No evidence of neck mass, focal inflammation or fluid collection. 3. Cervical degenerative disc disease and facet arthropathy. Dictated by: Dictated on workstation # [id number] Dict: 11/05/16831 Trans: 11/05/16941 Interpreted by: HAMIDA MARINA MD Electronically signed by: HAMIDA MARINA MD 11/05/16941 Departure Impression Impression: Primary Impression: Dysphagia Qualified Codes: R13.10 - Dysphagia, unspecified Additional Impressions: Nausea alone Constipation Qualified Codes: K59.00 - Constipation, unspecified Disposition: 01 HOME, SELF-CARE Condition: Improved Departure-Patient Inst. Decision time for Depature: 10:11 Referrals: JEFE SOLANO MD (PCP/Family) Primary Care Physician Patient Instructions: Constipation, Adult (DC), Dysphagia (DC), Nausea and Vomiting, Adult (DC) Add. Discharge Instructions: All discharge instructions reviewed with patient and/or family. Voiced understanding. Continue home medications as directed. Follow-up with Dr. Solano this week for recheck and further evaluation. You will need further imaging of your thyroid with ultrasound and that can be set up through his office. He may consider MRI of the brain is indicated then you can discuss this with Dr. Solano as well. You may use a fleets enema 1 time to help resolve her constipation. You you should start MiraLAX or the generic one capful twice daily for 3 days and then one capful daily thereafter as needed to keep stools soft. You may increase or decrease the dose to keep stools in the normal range. Ensure that you drink plenty of fluids. Copy Copies To 1: JEFE SOLANO MD, TIMOTHY D MD Nov 05, 2016 08:41
--- NOTE | 2016-11-05 09:11 | Diagnostic Imaging Report ---
EXAMINATION: Abdominal series with PA chest INDICATION: Dizziness, nausea, and difficulty swallowing FINDINGS: The lungs appear clear without focal infiltrate or effusion. There is no pneumothorax. Heart size and mediastinal contours are appropriate. Pulmonary vascularity appears within normal limits. Bowel gas pattern appears nonobstructed. There is moderate stool demonstrated within the colon. No unexpected abdominal calcifications are present. There is no acute osseous abnormality. IMPRESSION: 1. No radiographic evidence of an acute cardiopulmonary process. 2. Moderate stool within the colon. The bowel gas pattern is nonobstructed. There is no free air. Dictated by: Dictated on workstation # [id number]
--- NOTE | 2016-11-05 09:16 | Diagnostic Imaging Report ---
PROCEDURE: CT head without contrast. TECHNIQUE: Multiple contiguous axial images were obtained through the brain without the use of intravenous contrast. INDICATION: Dizziness, nausea and left-sided neck pain. Comparison is made to prior from November 26, 2013. FINDINGS: There is no CT evidence of intracranial hemorrhage. There is no evidence of intracranial mass effect or shift. There is no hydrocephalus. The basilar cisterns appear patent. [place] and white differentiation appear preserved. There is no evidence of abnormal hypodensity within the basal ganglia. There is no abnormal hypodensity evident within the erik. There is some mild atherosclerotic calcification demonstrated within the vessels at the skull base. No focally abnormal hyperdense vessel demonstrated. The mastoid air cells appear clear. There is a mucous retention cyst in the right maxillary sinus. IMPRESSION: 1. There is no CT evidence of an acute intracranial abnormality. Given history of dizziness, nausea, neck pain and difficulty swallowing, MRI could be considered to evaluate for the possibility of a lateral medullary infarct. Dictated by: Dictated on workstation # [id number]
--- NOTE | 2016-11-05 09:40 | Diagnostic Imaging Report ---
PROCEDURE: CT neck soft tissue without contrast. TECHNIQUE: Multiple contiguous axial images were obtained through the neck without the use of intravenous contrast. INDICATION: Left-sided neck pain with difficulty swallowing. Nausea and dizziness. FINDINGS: The visualized intracranial contents are unremarkable. The mastoid air cells are clear. There is a mucous retention cyst in the right maxillary sinus. The visualized portion of the orbits are normal. The posterior nasopharynx and oropharynx demonstrate no significant asymmetry and there is no displacement of the parapharyngeal fat planes. There is no abnormal process within the prevertebral retropharyngeal space. There is no evidence of thickening of the epiglottis. The vocal folds appear symmetric. The parotid, submandibular and thyroid glands are unremarkable. There is no evidence of pathologic enlargement of cervical lymph nodes. No neck mass, focal inflammation or fluid collection demonstrated. Lung apices demonstrate some apical pleural-parenchymal scarring. There is no pneumothorax. There are multilevel degenerative features present within the cervical spine but no acute or suspicious osseous abnormality evident. IMPRESSION: 1. Aerodigestive tract demonstrates appropriate symmetry without noncontrast CT evidence of abnormal mucosal based soft tissue thickening. There is no pathologic adenopathy 2. No evidence of neck mass, focal inflammation or fluid collection. 3. Cervical degenerative disc disease and facet arthropathy. Dictated by: Dictated on workstation # [id number]
[2016-11-05 10:31] VITALS: BP 174/99
== END 2016-11-05 10:31 | disposition home or self-care (01) ==
LOC: EDUNIT# 07:34 → ER 07:36
DX: K59.00 Constipation, unspecified (principal); R11.0 Nausea; R13.10 Dysphagia, unspecified; J45.909 Unspecified asthma, uncomplicated; I10 Essential (primary) hypertension; K21.9 Gastro-esophageal reflux disease without esophagitis; M19.90 Unspecified osteoarthritis, unspecified site; F41.9 Anxiety disorder, unspecified; Z82.49 Family history of ischemic heart disease and other diseases of the circulatory system; Z80.3 Family history of malignant neoplasm of breast; Z87.19 Personal history of other diseases of the digestive system; Z86.73 Personal history of transient ischemic attack (TIA), and cerebral infarction without residual deficits
CPT/HCPCS: 70450; 70490; 74022; 96372; 99284

== ENCOUNTER → 2016-11-08 | Outpatient (CLI) | payer MEDICARE ==
[~2016-11-08] VITALS: Ht 167.6 cm; Wt 60.3 kg
[~2016-11-08] MED LIST changes: +POTASSIUM CHLORIDE INJ 10 MEQ in NS IV 1000 ML 1,000 ML IV SCH
[2016-11-08 15:16] LABS: ANION GAP 16 MMOL/L (5-14); BLOOD UREA NITROGEN 20 MG/DL (7-18); BUN/CREATININE RATIO 27; CALCIUM 9.1 MG/DL (8.5-10.1); CARBON DIOXIDE 29 MMOL/L (21-32); CHLORIDE 97 MMOL/L (98-107); CREATININE SERUM 0.74 MG/DL (0.60-1.30); GFR ESTIMATED > 60; GLUCOSE 95 MG/DL (70-105); POTASSIUM 2.8 MMOL/L (3.6-5.0); SODIUM 142 MMOL/L (135-145)
[2016-11-08 15:27] VITALS: BP 146/85
[2016-11-08 17:00] VITALS: BP 146/85
== END ==
LOC: SDC 14:17 → EDSTATUS 14:20
PROVIDERS: ATTEND Family Medicine
DX: E87.6 Hypokalemia (principal); R13.19 Other dysphagia
CPT/HCPCS: 36415; 80048; 96360; 96361